=== PATIENT | male | born 1980 | race Caucasian/White ===

== ENCOUNTER 2016-07-16 09:52 | Emergency (ER) | payer OTHER ==
[2016-07-16] MEDS ORDERED: SODIUM CHLORIDE 0.9% 1,000 ML IV STA ×2 (10:54)
--- NOTE | 2016-07-16 10:58 | ED ---
General Adult HPI <Gabriel Pendleton - Last Filed: 07/16/16 14:07> - General Source: patient, RN notes reviewed Mode of arrival: ambulatory Limitations: no limitations <Martinez Renae - Last Filed: 07/16/16 14:10> - General Chief complaint: Headache Stated complaint: jaw pain Time Seen by Provider: 07/16/16 10:40 - History of Present Illness Initial comments: Patient a 36-year-old female who presents emergency room today with chief complaint of headache. Patient does admit to a history of jaw surgery that occurred 15 years ago. He does admit that he was told that the root began having pain approximately 10 years after the surgery. States he's had pain in the jaw. He does admit that 2 weeks ago increased. Patient does admit that he began having increased headache approximately 1 week ago. Patient states that he does have photosensitivity. Admits to headache located all over. Admits to it being sharp and throbbing and constant. She has tried [id number] medications with no relief. He does admit to some neck pain or stiffness is worse with certain movements. Patient denies any other complaints or symptoms. Patient denies any recent fever, chills, shortness of breath, chest pain, back pain, abdominal pain, nausea or vomiting, numbness or tingling, dysuria or hematuria, constipation or diarrhea, visual changes, or any other complaints. ( Martinez Renae) - Related Data Home Medications Medication Instructions Recorded Confirmed ALPRAZolam [Xanax] 1 mg PO DAILY PRN 12/27/15 07/16/16 Acetaminophen Tab [Tylenol Tab] 650 mg PO Q6H PRN 07/16/16 07/16/16 Allergies Allergy/AdvReac Type Severity Reaction Status Date / Time ziprasidone [From Geodon] AdvReac Unknown Verified 07/16/16 10:48 Review of Systems ROS Other: All systems not noted in ROS Statement are negative. <Gabriel Pendleton - Last Filed: 07/16/16 14:07> ROS Other: All systems not noted in ROS Statement are negative. <Martinez Renae - Last Filed: 07/16/16 14:10> ROS Statement: Those systems with pertinent positive or pertinent negative responses have been documented in the HPI. Past Medical History Past Medical History: GERD/Reflux, Hypertension Additional Past Medical History / Comment(s): History of high cholesterol, migraines, chronic pain issues in bilateral legs, history of chronic bronchitis. History of Any Multi-Drug Resistant Organisms: None Reported Past Surgical History: Cholecystectomy Additional Past Surgical History / Comment(s): JAW SURGERY S/P FRACTURE-has metal plate and screws. Past Anesthesia/Blood Transfusion Reactions: No Reported Reaction Past Psychological History: Anxiety, Bipolar, Depression, Panic Disorder, PTSD Additional Psychological History / Comment(s): Pt resides with his mother. He is independent. He drives. Smoking Status: Current every day smoker Past Alcohol Use History: None Reported Additional Past Alcohol Use History / Comment(s): Pt states he started smoking at age 14 (1994) and smokes 6 packs a day and rolls his own cigarettes. He states he smokes marijuana "1 joint a week." Pt. has a medical marijuana card. He denies any other street drug use. He denies any alcohol use and has had none for 6 years due to alcohol abuse. Past Drug Use History: Marijuana Additional Drug Use History / Comment(s): smokes marajuana once a week. - Past Family History Father Family Medical History: Liver Disease Additional Family Medical History / Comment(s): Father is alive in his late 60s and has hepatitis C, otherwise healthy. Mother Family Medical History: Diabetes Mellitus Additional Family Medical History / Comment(s): Mother is alive in her late 60s and is a diet controlled diabetic Brother(s) Family Medical History: No Reported History Additional Family Medical History / Comment(s): Patient has 1 brother with no major medical problems. Sister(s) Family Medical History: No Reported History Additional Family Medical History / Comment(s): Patient has 2 sisters with no major medical problems. Patient does not know if he has any children. <Martinez Renae - Last Filed: 07/16/16 14:10> General Exam <Gabriel Pendleton - Last Filed: 07/16/16 14:07> Limitations: no limitations <Martinez Renae - Last Filed: 07/16/16 14:10> - General Exam Comments Initial Comments: General: The patient is awake and alert, in no distress, and does not appear acutely ill. Eye: Pupils are equal, round and reactive to light, extra-ocular movements are intact. No nystagmus. There is normal conjunctiva bilaterally. No signs of icterus. Ears, nose, mouth and throat: There are moist mucous membranes and no oral lesions. Neck: The neck is supple, there is no tenderness or JVD. Cardiovascular: There is a regular rate and rhythm. No murmur, rub or gallop is appreciated. Respiratory: Lungs are clear to auscultation, respirations are non-labored, breath sounds are equal. No wheezes, stridor, rales, or rhonchi. Gastrointestinal: Soft, non-distended, non-tender abdomen without masses or organomegaly noted. There is no rebound or guarding present. No CVA tenderness. Bowel sounds are unremarkable. Musculoskeletal: Normal ROM, no tenderness. Strength 5/5. Sensation intact. Pulses equal bilaterally 2+. Neurological: A&O x 3. CN II-XII intact, There are no obvious motor or sensory deficits. Coordination appears grossly intact. Speech is normal. Skin: Skin is warm and dry and no rashes or lesions are noted. Psychiatric: Cooperative, appropriate mood & affect, normal judgment. (Martinez Renae) Medical Decision Making - Lab Data Result diagrams: 07/16/16 11:18 07/16/16 11:18 <Gabriel Pendleton - Last Filed: 07/16/16 14:07> - Lab Data Result diagrams: 07/16/16 11:18 07/16/16 11:18 <Martinez Renae - Last Filed: 07/16/16 14:10> - Medical Decision Making Patient reevaluated by myself, Dr. Pendleton. Patient states she's been having severe headaches for the past 5 years. Patient has had previous CTs and evaluation for this. Patient states she is similar to previous headaches. Pupils equal round reactive to light. Extra ocular muscles intact. No meningismus. Strength equal throughout. Normal gait. Patient requesting discharge home and narcotic pain medication. Patient is advised to follow-up with neurology and ENT. (Gabriel Pendleton) - Lab Data Lab Results 07/16/16 07/16/16 07/16/16 Range/Units 11:18 11:18 11:18 WBC 13.5 H (3.8-10.6) k/uL RBC 4.93 (4.30-5.90) m/uL Hgb 15.4 (13.0-17.5) gm/dL Hct 46.0 (39.0-53.0) % MCV 93.5 (80.0-100.0) fL MCH 31.2 (25.0-35.0) pg MCHC 33.4 (31.0-37.0) g/dL RDW 13.4 (11.5-15.5) % Plt Count 214 (150-450) k/uL Neutrophils % 62 % Lymphocytes % 25 % Monocytes % 6 % Eosinophils % 4 % Basophils % 1 % Neutrophils # 8.4 H (1.3-7.7) k/uL Lymphocytes # 3.4 (1.0-4.8) k/uL Monocytes # 0.9 (0-1.0) k/uL Eosinophils # 0.5 (0-0.7) k/uL Basophils # 0.1 (0-0.2) k/uL PT 9.5 (9.0-12.0) sec INR 0.9 (<1.1) APTT 25.7 (22.0-30.0) sec Sodium 143 (137-145) mmol/L Potassium 3.7 (3.5-5.1) mmol/L Chloride 107 (98-107) mmol/L Carbon Dioxide 28 (22-30) mmol/L Anion Gap 8 mmol/L BUN 13 (9-20) mg/dL Creatinine 0.90 (0.66-1.25) mg/dL Est GFR (MDRD) Af Amer >60 (>60 ml/min/1.73 sqM) Est GFR (MDRD) Non-Af >60 (>60 ml/min/1.73 sqM) Glucose 90 (74-99) mg/dL Calcium 9.2 (8.4-10.2) mg/dL Total Bilirubin 0.3 (0.2-1.3) mg/dL AST 62 H (17-59) U/L ALT 113 H (21-72) U/L Alkaline Phosphatase 79 (38-126) U/L Total Protein 7.2 (6.3-8.2) g/dL Albumin 4.1 (3.5-5.0) g/dL Urine Color Urine Appearance (Clear) Urine pH (5.0-8.0) Ur Specific [place] (1.001-1.035) Urine Protein (Negative) Urine Glucose (UA) (Negative) Urine Ketones (Negative) Urine Blood (Negative) Urine Nitrite (Negative) Urine Bilirubin (Negative) Urine Urobilinogen (<2.0) mg/dL Ur Leukocyte Esterase (Negative) Urine Opiates Screen (NotDetected) Ur Oxycodone Screen (NotDetected) Urine Methadone Screen (NotDetected) Ur Propoxyphene Screen (NotDetected) Ur Barbiturates Screen (NotDetected) U Tricyclic Antidepress (NotDetected) Ur Phencyclidine Scrn (NotDetected) Ur Amphetamines Screen (NotDetected) U Methamphetamines Scrn (NotDetected) U Benzodiazepines Scrn (NotDetected) Urine Cocaine Screen (NotDetected) U Marijuana (THC) Screen (NotDetected) 07/16/16 07/16/16 Range/Units 11:35 11:35 WBC (3.8-10.6) k/uL RBC (4.30-5.90) m/uL Hgb (13.0-17.5) gm/dL Hct (39.0-53.0) % MCV (80.0-100.0) fL MCH (25.0-35.0) pg MCHC (31.0-37.0) g/dL RDW (11.5-15.5) % Plt Count (150-450) k/uL Neutrophils % % Lymphocytes % % Monocytes % % Eosinophils % % Basophils % % Neutrophils # (1.3-7.7) k/uL Lymphocytes # (1.0-4.8) k/uL Monocytes # (0-1.0) k/uL Eosinophils # (0-0.7) k/uL Basophils # (0-0.2) k/uL PT (9.0-12.0) sec INR (<1.1) APTT (22.0-30.0) sec Sodium (137-145) mmol/L Potassium (3.5-5.1) mmol/L Chloride (98-107) mmol/L Carbon Dioxide (22-30) mmol/L Anion Gap mmol/L BUN (9-20) mg/dL Creatinine (0.66-1.25) mg/dL Est GFR (MDRD) Af Amer (>60 ml/min/1.73 sqM) Est GFR (MDRD) Non-Af (>60 ml/min/1.73 sqM) Glucose (74-99) mg/dL Calcium (8.4-10.2) mg/dL Total Bilirubin (0.2-1.3) mg/dL AST (17-59) U/L ALT (21-72) U/L Alkaline Phosphatase (38-126) U/L Total Protein (6.3-8.2) g/dL Albumin (3.5-5.0) g/dL Urine Color Colorless Urine Appearance Clear (Clear) Urine pH 5.0 (5.0-8.0) Ur Specific [place] 1.003 (1.001-1.035) Urine Protein Negative (Negative) Urine Glucose (UA) Negative (Negative) Urine Ketones Negative (Negative) Urine Blood Negative (Negative) Urine Nitrite Negative (Negative) Urine Bilirubin Negative (Negative) Urine Urobilinogen <2.0 (<2.0) mg/dL Ur Leukocyte Esterase Negative (Negative) Urine Opiates Screen Not Detected (NotDetected) Ur Oxycodone Screen Not Detected (NotDetected) Urine Methadone Screen Not Detected (NotDetected) Ur Propoxyphene Screen Not Detected (NotDetected) Ur Barbiturates Screen Not Detected (NotDetected) U Tricyclic Antidepress Not Detected (NotDetected) Ur Phencyclidine Scrn Not Detected (NotDetected) Ur Amphetamines Screen Not Detected (NotDetected) U Methamphetamines Scrn Not Detected (NotDetected) U Benzodiazepines Scrn Detected H (NotDetected) Urine Cocaine Screen Not Detected (NotDetected) U Marijuana (THC) Screen Detected H (NotDetected) Disposition <Gabriel Pendleton - Last Filed: 07/16/16 14:07> Time of Disposition: 14:09 <Martinez Renae - Last Filed: 07/16/16 14:10> Clinical Impression: Headache Disposition: HOME SELF-CARE Condition: Good Additional Instructions: Please follow-up with neurology and ENT as discussed here in the emergency room. Return to emergency room if any symptoms increase or worsen or for any other concerns. Referrals: None,Stated [Primary Care Provider] - 1-2 days Segundo Huang MD [STAFF PHYSICIAN] - 1-2 days Jerome Douglas MD [STAFF PHYSICIAN] - 1-2 days
[2016-07-16 11:31] LABS: Basophils # (A) 0.1 k/uL (0-0.2); Basophils % (A) 1 %; CH 31.8; CHCM 34.2; Eosinophils # (A) 0.5 k/uL (0-0.7); Eosinophils % (A) 4 %; HGB 15.4 gm/dL (13.0-17.5); Luc # (Auto) 0.21; Luc % (Auto) 2; Lymphocytes # (A) 3.4 k/uL (1.0-4.8); Lymphocytes % (A) 25 %; MCH 31.2 pg (25.0-35.0); MCHC 33.4 g/dL (31.0-37.0); MCV 93.5 fL (80.0-100.0); Mean Platelet Volume 7.2; Monocytes # (A) 0.9 k/uL (0-1.0); Monocytes % (A) 6 %; Neutrophils # (A) 8.4 k/uL (1.3-7.7); Neutrophils % (A) 62 %; RBC 4.93 m/uL (4.30-5.90); RDW 13.4 % (11.5-15.5); WBC 13.5 k/uL (3.8-10.6); WBC (Perox) 13.38
[2016-07-16 11:39] LABS: ALT 113 U/L (21-72); AST 62 U/L (17-59); Alkaline Phosphatase 79 U/L (38-126); Anion Gap 8 mmol/L; Blood Urea Nitrogen 13 mg/dL (9-20); Calcium 9.2 mg/dL (8.4-10.2); Carbon Dioxide 28 mmol/L (22-30); Chloride 107 mmol/L (98-107); Glucose 90 mg/dL (74-99); INR 0.9 (<1.1); Non-African American GFR(MDRD) >60 (>60 ml/min/1.73 sqM); Partial Thromboplastin Time 25.7 sec (22.0-30.0); Potassium 3.7 mmol/L (3.5-5.1); Prothrombin Time 9.5 sec (9.0-12.0); Sodium 143 mmol/L (137-145); Total Bilirubin 0.3 mg/dL (0.2-1.3); Total Protein 7.2 g/dL (6.3-8.2)
[2016-07-16 11:46] LABS: Appearance,Urine Clear (Clear); Bilirubin,Urine Negative (Negative); Glucose,Urine (UA) Negative (Negative); Ketones,Urine Negative (Negative); Leukocyte Esterase,Urine Negative (Negative); Nitrite,Urine Negative (Negative); Protein,Urine Negative (Negative); Specific Gravity,Urine 1.003 (1.001-1.035); UA Billing (MACRO vs. MICRO) CHEM; Urobilinogen,Urine <2.0 mg/dL (<2.0)
--- NOTE | 2016-07-16 11:51 | CT ---
EXAMINATION TYPE: CT brain cspine wo con DATE OF EXAM: 07/16/2016 11:44 AM COMPARISON: 12/28/2015 HISTORY: Jaw pain, headaches CT DLP: 2267 mGycm, Automated exposure control for dose reduction was used. CONTRAST: None CT of the brain is performed utilizing 3 mm thick sections through the posterior fossa and 3 mm thick sections through the remaining calvarium. Study is performed within 24 hours of arrival to the hospital. No abnormal hyperdensity is present to suggest an acute intracranial hemorrhage. No mass lesion is evident. No acute infarcts are evident. Ventricles and sulci are appropriate for the patient age. Paranasal sinuses and mastoid air cells within the ykwqe-lv-ahth are clear. Temporomandibular joint within the quxaw-uy-kpta is normal IMPRESSIONS: 1. Normal CT brain. CT cervical spine. COMPARISON: None CT of the cervical spine is performed in the axial plane at 2 mm thick sections. Reconstructed image s in the coronal, and sagittal plane are reviewed on the computer. No acute fractures are evident. Spina bifida occulta of C1 is present. Portion of the mandible within the mzoyq-ec-uerv is normal. Vertebral body alignment is normal. Disc heights are preserved. Vertebral body heights are preserved. No spinal canal stenosis is evident. No neural foraminal stenosis is evident. IMPRESSIONS: 1. Normal CT cervical spine.
[2016-07-16] MEDS ORDERED: KETOROLAC 30 MG/ML 1 ML VIAL IVP STA (12:15)
[2016-07-16] MEDS ORDERED: METOCLOPRAMIDE 5 MG/ML 2 ML VIAL IVP STA (12:15)
[2016-07-16] MEDS ORDERED: diphenhydrAMINE 50 MG/ML 1 ML VIAL IVP STA (12:15)
[2016-07-16] MEDS ORDERED: MORPHINE SULFATE 4 MG/ML SYRINGE IV STA (14:09)
[2016-07-16 14:18] VITALS: BP 113/63; PULSE 84; RESP 16; TEMP 97.6
== END 2016-07-16 14:38 | disposition home or self-care (01) ==
LOC: EC 09:52
DX: R51 Headache (principal); R68.84 Jaw pain; M54.2 Cervicalgia; F17.210 Nicotine dependence, cigarettes, uncomplicated; Z88.8 Allergy status to other drugs, medicaments and biological substances
CPT/HCPCS: 99284; 96374; 96375 ×2; 96361; 36415; 80053; 85025; 85610; 85730; 81003; 87040; 80306; 72125; 70450; J1200; J2765; J1885

== ENCOUNTER 2017-03-25 06:31 | Emergency (ER) | payer OTHER ==
[2017-03-25 06:44] VITALS: RESP 18
[2017-03-25] MEDS ORDERED: KETOROLAC 60 MG/2 ML VIAL IM STA (07:22)
--- NOTE | 2017-03-25 07:24 | ED ---
General Adult HPI - General Chief complaint: Fall Stated complaint: Fall down stairs Time Seen by Provider: 03/25/17 07:00 Source: patient, RN notes reviewed Mode of arrival: ambulatory Limitations: no limitations - History of Present Illness Initial comments: This is a 36-year-old male who presents emergency Department stating he fell down a couple steps last evening complains of left foot pain and right upper arm pain. Patient denies being intoxicated at the time. Patient denies hitting his head or having any neck pain. Patient denies any other injuries. Patient denies chest pain difficulty breathing or shortness of breath. Patient states he just lost his balance when he fell. Patient denies any abdominal pain patient denies any back pain - Related Data Home Medications Medication Instructions Recorded Confirmed ALPRAZolam [Xanax] 0.25 mg PO QID PRN 01/22/17 03/25/17 Mirtazapine [Remeron] 30 mg PO HS 01/22/17 03/25/17 QUEtiapine FUMARATE [SEROquel] 300 mg PO HS 01/22/17 03/25/17 busPIRone HCL 15 mg PO TID 01/22/17 03/25/17 Allergies Allergy/AdvReac Type Severity Reaction Status Date / Time ziprasidone [From Geodon] AdvReac Unknown Verified 07/16/16 10:48 Review of Systems ROS Statement: Those systems with pertinent positive or pertinent negative responses have been documented in the HPI. ROS Other: All systems not noted in ROS Statement are negative. Past Medical History Past Medical History: GERD/Reflux, Hypertension Additional Past Medical History / Comment(s): History of high cholesterol, migraines, chronic pain issues in bilateral legs, history of chronic bronchitis. History of Any Multi-Drug Resistant Organisms: None Reported Past Surgical History: Cholecystectomy Additional Past Surgical History / Comment(s): JAW SURGERY S/P FRACTURE-has metal plate and screws. Past Anesthesia/Blood Transfusion Reactions: No Reported Reaction Past Psychological History: Anxiety, Bipolar, Depression, Panic Disorder, PTSD Smoking Status: Current every day smoker Past Alcohol Use History: Abuse Past Drug Use History: Marijuana - Past Family History Father Family Medical History: Liver Disease Additional Family Medical History / Comment(s): Father is alive in his late 60s and has hepatitis C, otherwise healthy. Mother Family Medical History: Diabetes Mellitus Additional Family Medical History / Comment(s): Mother is alive in her late 60s and is a diet controlled diabetic Brother(s) Family Medical History: No Reported History Additional Family Medical History / Comment(s): Patient has 1 brother with no major medical problems. Sister(s) Family Medical History: No Reported History Additional Family Medical History / Comment(s): Patient has 2 sisters with no major medical problems. Patient does not know if he has any children. General Exam - General Exam Comments Initial Comments: GENERAL Patient is well-developed and well-nourished. Patient is in mild distress. EYES Patient's pupils are equal and round. Extraocular motion is intact SKIN Unremarkable NEURO The patient is alert and oriented 3 PYSCH Patient has normal interpersonal interactions. MUSCULOSKELETAL Patient's left foot is not swollen and mildly tender at the second metatarsal. Patient's humerus has full range of motion at the shoulder and elbow but he has some tenderness in the posterior aspect of the arm. Limitations: no limitations Course Vital Signs 03/25/17 03/25/17 06:40 08:42 Temperature 100 F H 98.7 F Pulse Rate 106 H 90 Respiratory 18 18 Rate Blood Pressure 137/78 113/68 O2 Sat by Pulse 94 L 94 L Oximetry Medical Decision Making - Medical Decision Making humerus shows no acute fracture on the x-ray. Foot x-ray shows no acute fracture. Disposition Clinical Impression: Contusion, foot, Contusion of arm Disposition: HOME SELF-CARE Condition: Good Instructions: Contusion in Adults (ED) Referrals: None,Stated [Primary Care Provider] - 1-2 days Time of Disposition: 08:44
--- NOTE | 2017-03-25 07:54 | XR ---
EXAMINATION TYPE: XR foot limited LT DATE OF EXAM: 03/25/2017 CLINICAL HISTORY: pain TECHNIQUE: Frontal, lateral images of the left foot are obtained. COMPARISON: 12/28/15 FINDINGS: There is no acute fracture/dislocation evident. The joint spaces appear within normal herrera its. The overlying soft tissue appears unremarkable. IMPRESSION: There is no acute fracture or dislocation. ICD 10 NO FRACTURE, INITIAL EVALUATION
--- NOTE | 2017-03-25 07:55 | XR ---
EXAMINATION TYPE: XR humerus RT DATE OF EXAM: 03/25/2017 CLINICAL HISTORY: pain COMPARISON: NONE TECHNIQUE: Frontal and lateral images of the right humerus are obtained. FINDINGS: There is no acute fracture/dislocation evident. The joint spaces appear within normal limi ts. The overlying soft tissue appears unremarkable. IMPRESSION: There is no acute fracture or dislocation.ICD 10 NO FRACTURE, INITIAL EVALUATION
[2017-03-25 08:43] VITALS: BP 113/68; PULSE 90; TEMP 98.7
== END 2017-03-25 08:49 | disposition home or self-care (01) ==
LOC: EC 06:31
DX: S90.32XA Contusion of left foot, initial encounter (principal); S40.021A Contusion of right upper arm, initial encounter; F31.9 Bipolar disorder, unspecified; F41.9 Anxiety disorder, unspecified; F17.200 Nicotine dependence, unspecified, uncomplicated; Z79.899 Other long term (current) drug therapy; Z88.8 Allergy status to other drugs, medicaments and biological substances; W10.9XXA Fall (on) (from) unspecified stairs and steps, initial encounter; Y93.89 Activity, other specified
CPT/HCPCS: 73060; 73620; 99283; 96372; J1885

== ENCOUNTER 2017-10-27 23:32 | Emergency (ER) | payer OTHER ==
[2017-10-28] MEDS ORDERED: NICOTINE 21MG/24HR PATCH TRANSDERM ONE (02:00)
[2017-10-28] MEDS ORDERED: SODIUM CHLORIDE 0.9% 1,000 ML BAG ONE (02:00)
[2017-10-28] MEDS ORDERED: MORPHINE SULFATE 2 MG/ML SYRINGE ONE ×2 (02:00)
[2017-10-28 06:58] LABS: ALT 195 U/L (21-72); AST 153 U/L (17-59); Albumin 4.6 g/dL (3.5-5.0); Alkaline Phosphatase 73 U/L (38-126); Anion Gap 11 mmol/L; Appearance,Urine Clear (Clear); Bilirubin,Urine Negative (Negative); Blood Urea Nitrogen 5 mg/dL (9-20); Blood,Urine Negative (Negative); Carbon Dioxide 23 mmol/L (22-30); Chloride 111 mmol/L (98-107); Color,Urine Yellow; Glucose 105 mg/dL (74-99); Glucose,Urine (UA) Negative (Negative); Ketones,Urine Negative (Negative); Leukocyte Esterase,Urine Negative (Negative); Mucus,Urine Rare /hpf; Nitrite,Urine Negative (Negative); PH, Urine 5.5 (5.0-8.0); Potassium 3.9 mmol/L (3.5-5.1); Protein,Urine Trace (Negative); RBC,Urine <1 /hpf (0-5); Sodium 145 mmol/L (137-145); Specific Gravity,Urine 1.008 (1.001-1.035); Total Bilirubin 0.4 mg/dL (0.2-1.3); Total Protein 7.6 g/dL (6.3-8.2); Urobilinogen,Urine <2.0 mg/dL (<2.0); WBC,Urine 1 /hpf (0-5)
[2017-10-28 06:59] LABS: Alcohol 111 mg/dL
[2017-10-28 07:01] LABS: Amphetamine Screen,Urine Not Detected (NotDetected); Barbiturate Screen,Urine Not Detected (NotDetected); Benzodiazepines Screen,Urine Detected (NotDetected); Cocaine Screen,Urine Not Detected (NotDetected); Methadone Screen, Urine Detected (NotDetected); Opiate Screen,Urine Not Detected (NotDetected); Oxycodone Screen, Urine Not Detected (NotDetected); Phencyclidine Screen,Urine Not Detected (NotDetected); Tricyclic Antidepressant,Urine Not Detected (NotDetected); Urn Cannabinoid Scrn Detected (NotDetected)
[2017-10-28 07:02] LABS: Basophils # (A) 0.1 k/uL (0-0.2); Basophils % (A) 1 %; Eosinophils # (A) 0.1 k/uL (0-0.7); Eosinophils % (A) 1 %; HGB 15.9 gm/dL (13.0-17.5); Lymphocytes # (A) 3.6 k/uL (1.0-4.8); Lymphocytes % (A) 33 %; MCH 31.3 pg (25.0-35.0); MCHC 33.1 g/dL (31.0-37.0); MCV 94.7 fL (80.0-100.0); Mean Platelet Volume 7.1; Monocytes # (A) 0.8 k/uL (0-1.0); Monocytes % (A) 7 %; Neutrophils # (A) 5.9 k/uL (1.3-7.7); Neutrophils % (A) 56 %; Platelet Count 214 k/uL (150-450); RBC 5.07 m/uL (4.30-5.90); RDW 14.2 % (11.5-15.5); WBC 10.7 k/uL (3.8-10.6)
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
== END 2017-10-28 06:44 ==
LOC: EC 23:32
DX: M54.2 Cervicalgia (principal); M54.5 Low back pain; R51 Headache; M79.672 Pain in left foot; M79.671 Pain in right foot; H54.62 Unqualified visual loss, left eye, normal vision right eye; F41.9 Anxiety disorder, unspecified; F17.200 Nicotine dependence, unspecified, uncomplicated; Z79.899 Other long term (current) drug therapy; Y04.0XXA Assault by unarmed brawl or fight, initial encounter
CPT/HCPCS: 82075; 36415; 80053; 85025; 81003; 80306; 80320; 71111; 73610; 73630; 72110; 72125; 70486; 70450; 99285; 96374; 96375; 96361; L0120; S4990; J2270

== ENCOUNTER 2017-11-16 11:58 | Emergency (ER) | payer OTHER ==
[2017-11-16] MEDS ORDERED: IBUPROFEN 800 MG TAB PO STA (12:25)
--- NOTE | 2017-11-16 12:43 | XR ---
EXAMINATION TYPE: XR foot complete RT DATE OF EXAM: 11/16/2017 CLINICAL HISTORY: pain TECHNIQUE: Frontal, lateral and oblique images of the right foot are obtained. COMPARISON: None. FINDINGS: There is no acute fracture/dislocation evident. The joint spaces appear within normal herrera its. The overlying soft tissue appears unremarkable. IMPRESSION: There is no acute fracture or dislocation. ICD 10 NO FRACTURE, INITIAL EVALUATION
[2017-11-16] MEDS ORDERED: AMOXIC-POT CLAV 875-125MG 1 EACH TAB PO STA (13:15)
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
[2017-11-16 13:38] VITALS: BP 145/73; PULSE 69; RESP 18; TEMP 98.6
== END 2017-11-16 13:38 | disposition home or self-care (01) ==
LOC: EC 11:58
DX: S90.31XA Contusion of right foot, initial encounter (principal); L03.115 Cellulitis of right lower limb; I87.2 Venous insufficiency (chronic) (peripheral); F31.9 Bipolar disorder, unspecified; F41.0 Panic disorder [episodic paroxysmal anxiety]; F17.200 Nicotine dependence, unspecified, uncomplicated; Z79.899 Other long term (current) drug therapy; Z88.8 Allergy status to other drugs, medicaments and biological substances; X58.XXXA Exposure to other specified factors, initial encounter
CPT/HCPCS: 99283

== ENCOUNTER 2017-12-08 10:47 | Emergency (ER) | payer OTHER ==
[2017-12-08 10:58] VITALS: BP 103/70; PULSE 99; RESP 18; TEMP 98.1
[2017-12-08] MEDS ORDERED: HYDROcodone/APAP 5-325MG 1 EACH TAB PO STA (11:16)
--- NOTE | 2017-12-08 11:21 | ED ---
General Adult HPI - General Chief complaint: Extremity Injury, Lower Stated complaint: Foot pain Source: patient Mode of arrival: ambulatory Limitations: no limitations - History of Present Illness Initial comments: Dictation was produced using [email or web address] dictation software. please excuse any grammatical, word or spelling errors. Chief Complaint: 37-year-old male presents with right foot pain. History of Present Illness: Patient states he was seen in the emergency department several days ago for the same complaint. He states that his legs were extremely swollen. States that he was treated for cellulitis. He completed a course of antibiotics. He is here today because he has some persistent right foot pain. Patient states that his pain has been getting worse. He reports that he is here because he is worried about infection. She is requesting 3 day course of Hastings as. The ROS documented in this emergency department record has been reviewed and confirmed by me. Those systems with pertinent positive or negative responses have been documented in the HPI. All other systems are other negative and/or noncontributory. - Related Data Home Medications Medication Instructions Recorded Confirmed Mirtazapine [Remeron] 30 mg PO HS 01/22/17 11/16/17 QUEtiapine FUMARATE [SEROquel] 300 mg PO HS 01/22/17 11/16/17 busPIRone HCL 15 mg PO TID 01/22/17 11/16/17 ALPRAZolam [Xanax] 2 mg PO TID 11/16/17 11/16/17 QUEtiapine [SEROquel] 100 mg PO DAILY@1800 11/16/17 11/16/17 Previous Rx's Medication Instructions Recorded Amoxicillin/Potassium Clav 1 tab PO Q12HR #20 tab 11/16/17 [Augmentin 875-125 Tablet] Hydrocodone/Acetaminophen [[place] 1 each PO Q6HR PRN #12 tab 11/16/17 5-325] Ibuprofen 800 mg PO Q6HR PRN #20 tablet 11/16/17 Allergies Allergy/AdvReac Type Severity Reaction Status Date / Time ziprasidone [From Geodon] AdvReac Unknown Verified 12/08/17 10:58 Review of Systems ROS Statement: Those systems with pertinent positive or pertinent negative responses have been documented in the HPI. ROS Other: All systems not noted in ROS Statement are negative. Past Medical History Past Medical History: GERD/Reflux, Hypertension Additional Past Medical History / Comment(s): History of high cholesterol, migraines, chronic pain issues in bilateral legs, history of chronic bronchitis. History of Any Multi-Drug Resistant Organisms: None Reported Past Surgical History: Cholecystectomy Additional Past Surgical History / Comment(s): JAW SURGERY S/P FRACTURE-has metal plate and screws. Past Anesthesia/Blood Transfusion Reactions: No Reported Reaction Past Psychological History: Anxiety, Bipolar, Depression, Panic Disorder, PTSD, Schizoaffective Disorder Smoking Status: Current every day smoker Past Alcohol Use History: None Reported Past Drug Use History: Marijuana - Past Family History Father Family Medical History: Liver Disease Additional Family Medical History / Comment(s): Father is alive in his late 60s and has hepatitis C, otherwise healthy. Mother Family Medical History: Diabetes Mellitus Additional Family Medical History / Comment(s): Mother is alive in her late 60s and is a diet controlled diabetic Brother(s) Family Medical History: No Reported History Additional Family Medical History / Comment(s): Patient has 1 brother with no major medical problems. Sister(s) Family Medical History: No Reported History Additional Family Medical History / Comment(s): Patient has 2 sisters with no major medical problems. Patient does not know if he has any children. General Exam - General Exam Comments Initial Comments: PHYSICAL EXAM: General Impression: Alert and oriented x3, not in acute distress HEENT: Normocephalic atraumatic, extra-ocular movements intact, pupils equal and reactive to light bilaterally, mucous membranes moist. Cardiovascular: Heart regular rate and rhythm, S1&S2 audible, no murmurs, rubs or gallops Chest: Lungs clear to auscultation bilaterally, no rhonchi, no wheeze, no rales Abdomen: Bowel sounds present, abdomen soft, non-tender, non-distended, no organomegaly Musculoskeletal: Pulses present and equal in all extremities, no peripheral edema Motor: Power 5/5 bilaterally, no focal deficits noted Neurological: CN II-XII grossly intact, no focal motor or sensory deficits noted Skin: Small tenderness to the dorsum of the right foot. No surrounding erythema. No drainage. Psych: Normal affect and mood Limitations: no limitations Course Vital Signs 12/08/17 10:56 Temperature 98.1 F Pulse Rate 99 Respiratory 18 Rate Blood Pressure 103/70 O2 Sat by Pulse 95 Oximetry Medical Decision Making - Medical Decision Making ED course: 37-year-old male presents with right foot. He denies any trauma. Patient states that his pain is worse. States that however he looks better. No physical findings to suggest cellulitis or other infectious process. As upon arrival are within acceptable limits. Patient requesting 3 days of opiates. There is some suspicion that patient is drug-seeking. Patient given 2 Hastings as for pain control. He is discharged. Patient told to take Tylenol Motrin for pain control. He is given follow-up with primary care physician for outpatient management of symptoms. Disposition Clinical Impression: Foot pain Disposition: HOME SELF-CARE Condition: Good Instructions: Arthralgia (ED) Is patient prescribed a controlled substance at d/c from ED?: No Referrals: None,Stated [Primary Care Provider] - 1-2 days Brayan Rodríguez MD [STAFF PHYSICIAN] - 1-2 days Time of Disposition: 11:19
== END 2017-12-08 11:45 | disposition home or self-care (01) ==
LOC: EC 10:47
DX: M79.671 Pain in right foot (principal); F41.9 Anxiety disorder, unspecified; F31.9 Bipolar disorder, unspecified; F43.10 Post-traumatic stress disorder, unspecified; F25.9 Schizoaffective disorder, unspecified; F17.200 Nicotine dependence, unspecified, uncomplicated; Z79.899 Other long term (current) drug therapy; Z88.8 Allergy status to other drugs, medicaments and biological substances
CPT/HCPCS: 99283

== ENCOUNTER 2018-01-12 01:40 | Emergency (ER) | payer OTHER ==
[2018-01-12 01:53] VITALS: RESP 17
[2018-01-12 02:38] LABS: Amphetamine Screen,Urine Not Detected (NotDetected); Cocaine Screen,Urine Not Detected (NotDetected); Opiate Screen,Urine Not Detected (NotDetected); Phencyclidine Screen,Urine Not Detected (NotDetected); Urn Cannabinoid Scrn Detected (NotDetected)
[2018-01-12 02:39] LABS: Barbiturate Screen,Urine Not Detected (NotDetected); Benzodiazepines Screen,Urine Detected (NotDetected); Methadone Screen, Urine Not Detected (NotDetected); Oxycodone Screen, Urine Not Detected (NotDetected); Tricyclic Antidepressant,Urine Not Detected (NotDetected)
--- NOTE | 2018-01-12 03:44 | ED ---
Psych HPI - General Chief Complaint: Psychiatric Symptoms Stated Complaint: mental health Time Seen by Provider: 01/12/18 02:05 Source: patient Mode of arrival: ambulatory - History of Present Illness Initial Comments: Hermes is a 37-year-old gentleman who presents the emergency department today for evaluation of psychiatric illness. Patient states that he has a complicated history of psychiatric illness. He reports that he has been hospitalized for psychiatric illness in the past, most recently was 2 years ago. Patient reports his mother brought him to the emergency department today because he needs evaluation. Patient reports that he is having over 1 million thoughts per second. When asked if he is having any suicidal thought the patient states that he doesn't know how to answer that complex question because with the multiple thoughts that he is having could some of them be suicidal, but is not codominant tautness head. When asked if he has any suicidal plan patient states that again he can't answer these questions but that if he was going to kill himself he would be very creative. When asked if he is having any homicidal thoughts or thoughts of harming others the patient denies this. When asked if he feels that he is hallucinating or delusional patient states that he's not certain if he is hallucinating. He states at times he thinks he is having vivid dreams and then believes he wakes up but isn't certain if he is awake her dreaming at times. When asked if he believes he is hallucinating the patient admits that he does have a lot of voices in his head but describes them as thoughts. He states he can't comment on whether or not he is hallucinating. - Related Data Home Medications Medication Instructions Recorded Confirmed Mirtazapine [Remeron] 30 mg PO HS 01/22/17 11/16/17 QUEtiapine FUMARATE [SEROquel] 300 mg PO HS 01/22/17 11/16/17 busPIRone HCL 15 mg PO TID 01/22/17 11/16/17 ALPRAZolam [Xanax] 2 mg PO TID 11/16/17 11/16/17 QUEtiapine [SEROquel] 100 mg PO DAILY@1800 11/16/17 11/16/17 Previous Rx's Medication Instructions Recorded Amoxicillin/Potassium Clav 1 tab PO Q12HR #20 tab 11/16/17 [Augmentin 875-125 Tablet] Hydrocodone/Acetaminophen [[place] 1 each PO Q6HR PRN #12 tab 11/16/17 5-325] Ibuprofen 800 mg PO Q6HR PRN #20 tablet 11/16/17 Allergies Allergy/AdvReac Type Severity Reaction Status Date / Time ziprasidone [From [place]] AdvReac Unknown Verified 01/12/18 01:53 Review of Systems ROS Statement: Those systems with pertinent positive or pertinent negative responses have been documented in the HPI. ROS Other: All systems not noted in ROS Statement are negative. Past Medical History Past Medical History: GERD/Reflux, Hyperlipidemia, Hypertension Additional Past Medical History / Comment(s): migraines, chronic pain issues in bilateral legs, history of chronic bronchitis., History of Any Multi-Drug Resistant Organisms: None Reported Past Surgical History: Cholecystectomy Additional Past Surgical History / Comment(s): JAW SURGERY S/P FRACTURE-has metal plate and screws. Past Anesthesia/Blood Transfusion Reactions: No Reported Reaction Past Psychological History: Anxiety, Bipolar, Depression, Panic Disorder, PTSD, Schizoaffective Disorder Smoking Status: Current every day smoker Past Alcohol Use History: None Reported Past Drug Use History: Marijuana - Past Family History Father Family Medical History: Liver Disease Additional Family Medical History / Comment(s): Father is alive in his late 60s and has hepatitis C, otherwise healthy. Mother Family Medical History: Diabetes Mellitus Additional Family Medical History / Comment(s): Mother is alive in her late 60s and is a diet controlled diabetic Brother(s) Family Medical History: No Reported History Additional Family Medical History / Comment(s): Patient has 1 brother with no major medical problems. Sister(s) Family Medical History: No Reported History Additional Family Medical History / Comment(s): Patient has 2 sisters with no major medical problems. Patient does not know if he has any children. General Exam - General Exam Comments Initial Comments: Physical Exam GENERAL: Patient is well-developed and well-nourished. Patient is nontoxic and well- hydrated and is in no distress. HENT: Normocephalic, Atraumatic. EYES: PERRL, EOMI PULMONARY: Unlabored respirations. No audible rales rhonchi or wheezing was noted. CARDIOVASCULAR: There is a regular rate and rhythm without any murmurs gallops or rubs. ABDOMEN: Obese, nontender SKIN: Skin is clear with no lesions or rashes and otherwise unremarkable. : Deferred NEUROLOGIC: Patient is alert and oriented x3. Moving all extremities spontaneously MUSCULOSKELETAL: Normal extremities with adequate strength and full range of motion. No lower extremity swelling or edema. No calf tenderness. PSYCHIATRIC: Odd affect, appears distracted by internal stimuli Passively suicidal Limitations: no limitations Limitations: no limitations Course Vital Signs 01/12/18 01:46 Temperature 98.2 F Pulse Rate 99 Respiratory 17 Rate Blood Pressure 143/96 O2 Sat by Pulse 96 Oximetry Medical Decision Making - Medical Decision Making The patient was seen and evaluated, patient's breath alcohol was mildly elevated but the patient is clinically sober. Patient is medically cleared for evaluation by psych. The patient was evaluated by EPS nurse. Patient has seen his primary care physician and therapist recently. Patient not actively suicidal homicidal delusional or hallucinating At this time EPS is determined the patient is stable for discharge home with the plan to follow up with his psychiatrist tomorrow morning. The patient was advised to contact in the morning for a emergency appointment. Patient expressed understanding of this plan. - Lab Data Lab Results 01/12/18 Range/Units 01:54 Urine Opiates Screen Not Detected (NotDetected) Ur Oxycodone Screen Not Detected (NotDetected) Urine Methadone Screen Not Detected (NotDetected) Ur Propoxyphene Screen Not Detected (NotDetected) Ur Barbiturates Screen Not Detected (NotDetected) U Tricyclic Antidepress Not Detected (NotDetected) Ur Phencyclidine Scrn Not Detected (NotDetected) Ur Amphetamines Screen Not Detected (NotDetected) U Methamphetamines Scrn Not Detected (NotDetected) U Benzodiazepines Scrn Detected H (NotDetected) Urine Cocaine Screen Not Detected (NotDetected) U Marijuana (THC) Screen Detected H (NotDetected) Disposition Clinical Impression: Depression Disposition: HOME SELF-CARE Instructions: Depression (ED), Peripheral Vascular Disease (ED) Is patient prescribed a controlled substance at d/c from ED?: No Referrals: None,Stated [Primary Care Provider] - 1-2 days [facility] [[facility] - 1-2 days Time of Disposition: 04:53
[2018-01-12 05:38] VITALS: BP 138/66; PULSE 67; TEMP 97.8
== END 2018-01-12 04:57 | disposition home or self-care (01) ==
LOC: EC 01:40
DX: F31.9 Bipolar disorder, unspecified (principal); F41.9 Anxiety disorder, unspecified; F43.10 Post-traumatic stress disorder, unspecified; F17.200 Nicotine dependence, unspecified, uncomplicated; Z90.49 Acquired absence of other specified parts of digestive tract; Z98.890 Other specified postprocedural states; Z88.8 Allergy status to other drugs, medicaments and biological substances
CPT/HCPCS: 80306; 99285

== ENCOUNTER 2018-07-15 09:55 | Emergency (ER) | payer OTHER ==
[2018-07-15 10:26] VITALS: BP 144/95; PULSE 82; RESP 16; TEMP 97.8
[2018-07-15] MEDS ORDERED: HYDROcodone/APAP 5-325MG 1 EACH TAB PO STA (11:08)
[2018-07-15] MEDS ORDERED: ACET/COD 300 MG/30 MG STARTER PACK 6 TAB BTL PO STA (11:09)
--- NOTE | 2018-07-15 11:10 | ED ---
Extremity Problem HPI - General Chief complaint: Extremity Problem,Nontraumatic Stated complaint: Pain in both feet Time Seen by Provider: 07/15/18 10:47 Source: patient, RN notes reviewed, old records reviewed Mode of arrival: ambulatory Limitations: physical limitation - History of Present Illness Initial comments: Patient is a 38-year-old male presents emergency department today with history of pain in bilateral feet as well as bruising over the dorsum of his seat. He reports chronic pain for the past few months. Patient states that he has foll owed up with [facility]. Patient states that they do biopsies and determines noninfectious source of the pain first feet. Patient has had no fevers or chills. Patient states that he is having severe pain in his feet yesterday. It caused him to have some anxiety subsequently had single episode after having a panic attack. Patient states that he was a syncopal episode is likely related to a panic attack, he states he was having some chest pain during that time. Patient is time seems more concern for pain management for bilateral foot pain. - Related Data Home Medications Medication Instructions Recorded Confirmed QUEtiapine FUMARATE [SEROquel] 300 mg PO HS 01/22/17 07/15/18 Acetaminophen Tab [Tylenol Tab] 1,000 mg PO Q6HR PRN 07/15/18 07/15/18 Ibuprofen [Motrin] 400 mg PO Q6HR PRN 07/15/18 07/15/18 Allergies Allergy/AdvReac Type Severity Reaction Status Date / Time ziprasidone [From Geodon] AdvReac Unknown Verified 07/15/18 10:32 Review of Systems ROS Statement: Those systems with pertinent positive or pertinent negative responses have been documented in the HPI. ROS Other: All systems not noted in ROS Statement are negative. Past Medical History Past Medical History: GERD/Reflux, Hyperlipidemia, Hypertension Additional Past Medical History / Comment(s): migraines, chronic pain issues in bilateral legs, history of chronic bronchitis., History of Any Multi-Drug Resistant Organisms: None Reported Past Surgical History: Cholecystectomy Additional Past Surgical History / Comment(s): JAW SURGERY S/P FRACTURE-has metal plate and screws. Past Anesthesia/Blood Transfusion Reactions: No Reported Reaction Past Psychological History: Anxiety, Bipolar, Depression, Panic Disorder, PTSD, Schizoaffective Disorder Smoking Status: Current every day smoker Past Alcohol Use History: None Reported Past Drug Use History: Marijuana - Past Family History Father Family Medical History: Liver Disease Additional Family Medical History / Comment(s): Father is alive in his late 60s and has hepatitis C, otherwise healthy. Mother Family Medical History: Diabetes Mellitus Additional Family Medical History / Comment(s): Mother is alive in her late 60s and is a diet controlled diabetic Brother(s) Family Medical History: No Reported History Additional Family Medical History / Comment(s): Patient has 1 brother with no major medical problems. Sister(s) Family Medical History: No Reported History Additional Family Medical History / Comment(s): Patient has 2 sisters with no major medical problems. Patient does not know if he has any children. General Exam - General Exam Comments Initial Comments: Patient is an 38-year-old male. Patient is alert and oriented Limitations: physical limitation General appearance: alert, in no apparent distress Head exam: Present: atraumatic, normocephalic, normal inspection Eye exam: Present: normal appearance, PERRL, EOMI. Absent: scleral icterus, conjunctival injection, periorbital swelling ENT exam: Present: normal exam, mucous membranes moist Neck exam: Present: normal inspection. Absent: tenderness, meningismus, lymphadenopathy Respiratory exam: Present: normal lung sounds bilaterally. Absent: respiratory distress, wheezes, rales, rhonchi, stridor Cardiovascular Exam: Present: regular rate, normal rhythm, normal heart sounds. Absent: systolic murmur, diastolic murmur, rubs, gallop, clicks GI/Abdominal exam: Present: soft, normal bowel sounds. Absent: distended, tenderness, guarding, rebound, rigid Extremities exam: Present: normal inspection, full ROM, normal capillary refill, other (Patient has brown skin changes over the dorsal MCP. Normal pulses distally. Full range of motion of the toes noted. Patient reports pain to any palpation of the foot. Patient seems over exaggerated.). Absent: tenderness, pedal edema, joint swelling, calf tenderness Back exam: Present: normal inspection Neurological exam: Present: alert, oriented X3, CN II-XII intact Psychiatric exam: Present: normal affect, normal mood Skin exam: Present: warm, dry, intact, normal color. Absent: rash Course Vital Signs 07/15/18 10:22 Temperature 97.8 F Pulse Rate 82 Respiratory 16 Rate Blood Pressure 144/95 O2 Sat by Pulse 96 Oximetry Medical Decision Making - Medical Decision Making 38-year-old male presents raise department today complains of bilateral foot pain. He also stated he had severe foot pain yesterday causing him to have a panic attack and then syncopal episode. I discussed the Patient and Do further workup for possible syncopal episode as well as relating to having started with chest pain. Patient states was from panic attack and does not want to do this. I discussed the Patient will be leaving his medical advice due to the complaint of syncopal episode. Patient is mainly concerned for his bilateral foot pain. Seems to be drug-seeking behavior. Given one Tylenol with Codeine in the emergency department and will be discharged AMA. I discussed and to follow-up with PCP. Discussed feeding any further syncopal episodes or concerns for chest pain he needs to return for reevaluation. Disposition Clinical Impression: Bilateral foot pain, Syncope Disposition: Left Against Medical Advice Condition: Good Instructions (If sedation given, give patient instructions): Syncope (ED) Additional Instructions: Follow-up with primary care doctor. Return to emergency department if any alarming signs or symptoms occur. Is patient prescribed a controlled substance at d/c from ED?: No Referrals: None,Stated [Primary Care Provider] - 1-2 days Time of Disposition: 11:09
== END 2018-07-15 11:25 | disposition left against medical advice (07) ==
LOC: EC 09:55
DX: M79.672 Pain in left foot (principal); M79.671 Pain in right foot; R55 Syncope and collapse; F41.0 Panic disorder [episodic paroxysmal anxiety]; F31.9 Bipolar disorder, unspecified; F25.9 Schizoaffective disorder, unspecified; F43.10 Post-traumatic stress disorder, unspecified; F17.200 Nicotine dependence, unspecified, uncomplicated; Z79.899 Other long term (current) drug therapy; Z88.8 Allergy status to other drugs, medicaments and biological substances; Z53.29 Procedure and treatment not carried out because of patient's decision for other reasons
CPT/HCPCS: 99283

== ENCOUNTER 2024-10-30 11:08 | Emergency (ER) | payer OTHER ==
[2024-10-30 11:21] VITALS: TEMP 97.9
[2024-10-30 12:16] LABS: Basophils # (A) 0.07 10*3/uL (0.00-0.10); Basophils % (A) 0.7 %; Eosinophils # (A) 0.13 10*3/uL (0.04-0.35); Eosinophils % (A) 1.4 %; HCT 45.1 % (39.6-50.0); HGB 15.9 g/dL (13.0-17.0); Lymphocytes # (A) 1.95 10*3/uL (0.90-5.00); Lymphocytes % (A) 20.4 %; MCH 32.7 pg (27.0-32.0); MCHC 35.3 g/dL (32.0-37.0); MCV 92.8 fL (80.0-97.0); Monocytes # (A) 0.72 10*3/uL (0.20-1.00); Monocytes % (A) 7.5 %; Neutrophils # (A) 6.65 10*3/uL (1.80-7.70); Neutrophils % (A) 69.6 %; Platelet Count 194 10*3/uL (140-440); RBC 4.86 10*6/uL (4.40-5.60); RDW 13.2 % (11.5-14.5); WBC 9.56 10*3/uL (4.50-10.00)
[2024-10-30 12:27] LABS: ALT 279 U/L (4-49); AST 154 U/L (17-59); African American GFR (CKD) >90 (>60 ml/min/1.73 sqM); Albumin 4.6 g/dL (3.5-5.0); Alkaline Phosphatase 63 U/L (38-126); Anion Gap 9 mmol/L; Blood Urea Nitrogen 16 mg/dL (9-20); Calcium 9.3 mg/dL (8.4-10.2); Carbon Dioxide 24 mmol/L (22-30); Chloride 107 mmol/L (98-107); Glucose 158 mg/dL (74-99); Magnesium 2.0 mg/dL (1.6-2.3); Non-African American GFR(CKD) >90 (>60 ml/min/1.73 sqM); Potassium 4.5 mmol/L (3.5-5.1); Sodium 140 mmol/L (137-145); Total Protein 7.9 g/dL (6.3-8.2)
[2024-10-30 12:34] LABS: INR 1.0 (<1.2); Partial Thromboplastin Time 23.9 sec (22.0-30.0); Prothrombin Time 10.8 sec (10.0-12.5)
--- NOTE | 2024-10-30 12:54 | ED ---
Chest Pain HPI - General Chief Complaint: Chest Pain Stated Complaint: Chest pain Time Seen by Provider: 10/30/24 11:22 Source: patient, RN notes reviewed Mode of arrival: ambulatory Limitations: no limitations - History of Present Illness Initial Comments: 44-year-old male presents emergency department complaint of chest pain. Patient states he had some intermittent symptoms more persistent symptoms centralized left-sided squeezing with statements that pain. He does not have any significant shortness of breath intermittent symptoms. Patient does have history of cardiac disease he states. Patient states he has history of hypertension hyperlipidemia and diabetes no fever chills no cough no leg symptoms no leg pain or leg swelling. - Related Data Home Medications Medication Instructions Recorded Confirmed ALPRAZolam [Xanax] 2 mg PO TID 10/30/24 10/30/24 Gabapentin [Neurontin] 400 mg PO TID 10/30/24 10/30/24 Mirtazapine [Remeron] 30 mg PO HS 10/30/24 10/30/24 OLANZapine 5 mg PO DAILY 10/30/24 10/30/24 OLANZapine 15 mg PO HS 10/30/24 10/30/24 Semaglutide [Ozempic] 0.25 mg SQ TU 10/30/24 10/30/24 busPIRone HCL 15 mg PO TID 10/30/24 10/30/24 Allergies Allergy/AdvReac Type Severity Reaction Status Date / Time ziprasidone [From Geodon] AdvReac Unknown Verified 10/30/24 13:11 Review of Systems ROS Statement: Those systems with pertinent positive or pertinent negative responses have been documented in the HPI. ROS Other: All systems not noted in ROS Statement are negative. EKG Findings - EKG Comments: EKG Findings:: EKG performed at 11: 26 sinus rhythm rate of 82 [place] 161 QRS 98 QT/QTc 351/389 - EKG Results: EKG: interpreted by ERMD Past Medical History Past Medical History: GERD/Reflux, Hyperlipidemia, Hypertension Additional Past Medical History / Comment(s): migraines, chronic pain issues in bilateral legs, history of chronic bronchitis., History of Any Multi-Drug Resistant Organisms: None Reported Past Surgical History: Cholecystectomy Additional Past Surgical History / Comment(s): JAW SURGERY S/P FRACTURE-has metal plate and screws. Past Anesthesia/Blood Transfusion Reactions: No Reported Reaction Past Psychological History: Anxiety, Bipolar, Depression, Panic Disorder, PTSD, Schizoaffective Disorder Smoking Status: Current every day smoker Past Alcohol Use History: None Reported Past Drug Use History: Marijuana - Past Family History Father Family Medical History: Liver Disease Additional Family Medical History / Comment(s): Father is alive in his late 60s and has hepatitis C, otherwise healthy. Mother Family Medical History: Diabetes Mellitus Additional Family Medical History / Comment(s): Mother is alive in her late 60s and is a diet controlled diabetic Brother(s) Family Medical History: No Reported History Additional Family Medical History / Comment(s): Patient has 1 brother with no major medical problems. Sister(s) Family Medical History: No Reported History Additional Family Medical History / Comment(s): Patient has 2 sisters with no major medical problems. Patient does not know if he has any children. General Exam Limitations: no limitations General appearance: alert, in no apparent distress Head exam: Present: atraumatic, normocephalic, normal inspection Eye exam: Present: normal appearance, PERRL, EOMI. Absent: scleral icterus, conjunctival injection, periorbital swelling ENT exam: Present: normal exam, normal oropharynx, mucous membranes moist, TM's normal bilaterally Neck exam: Present: normal inspection, full ROM. Absent: tenderness, meningismus, lymphadenopathy Respiratory exam: Present: normal lung sounds bilaterally. Absent: respiratory distress, wheezes, rales, rhonchi, stridor Cardiovascular Exam: Present: regular rate, normal rhythm, normal heart sounds. Absent: systolic murmur, diastolic murmur, rubs, gallop, clicks GI/Abdominal exam: Present: soft, normal bowel sounds. Absent: distended, tenderness, guarding, rebound, rigid Course Vital Signs 10/30/24 10/30/24 11:18 13:50 Temperature 97.9 F Pulse Rate 73 60 Respiratory 20 16 Rate Blood Pressure 141/66 136/90 O2 Sat by Pulse 99 98 Oximetry Chest Pain MDM - MDM Was pt. sent in by a medical professional or institution (, PA, CURATOR OF COLLECTIONS, urgent care, hospital, or [place] health care facility...) When possible be specific @ -No Did you speak to anyone other than the patient for history (EMS, parent, family, police, friend...)? What history was obtained from this source @ -No Did you review nursing and triage notes (agree or disagree)? Why? @ -I reviewed and agree with nursing and triage notes Were old charts reviewed (outside hosp., previous admission, EMS record, old EKG, old radiological studies, urgent care reports/EKG's, [place] health care facility records)? Report findings @ -No old charts were reviewed Differential Diagnosis (chest pain, altered mental status, abdominal pain women, abdominal pain men, vaginal bleeding, weakness, fever, dyspnea, syncope, headache, dizziness, GI bleed, back pain, seizure, CVA, palpatations, mental health, musculoskeletal)? @ -Differential Chest Pain: Stable Angina, Unstable Angina, STEMI, NSTEMI Aortic Dissection, Pneumothorax, Musculoskeletal, Esophageal Spasm GERD, Cholecystitis, Pancreatitis, Zoster, this is not meant to be an all-inclusive list. EKG interpreted by me (3pts min.). @ -As above X-rays interpreted by me (1pt min.). @ -Chest x-ray shows no acute cardiopulmonary process CT interpreted by me (1pt min.). @ -None done U/S interpreted by me (1pt. min.). @ -None done What testing was considered but not performed or refused? (CT, X-rays, U/S, labs)? Why? @ -None What meds were considered but not given or refused? Why? @ -None Did you discuss the management of the patient with other professionals (professionals i.e. , PA, CURATOR OF COLLECTIONS, lab, RT, psych nurse, social sciences professor, group managing director, teacher, building drafting officer, spring encaser)? Give summary @ -No Was smoking cessation discussed for >3mins.? @ -No Was critical care preformed (if so, how long)? @ -No Were there social determinants of health that impacted care today? How? (Homelessness, low income, unemployed, alcoholism, drug addiction, transportation, low edu. Level, literacy, decrease access to med. care, half-way, rehab)? @ -No Was there de-escalation of care discussed even if they declined (Discuss DNR or withdrawal of care, Hospice)? DNR status @ -No What co-morbidities impacted this encounter? (DM, HTN, Smoking, COPD, CAD, Cancer, CVA, ARF, Chemo, Hep., AIDS, mental health diagnosis, sleep apnea, morbid obesity)? @ -Hyperlipidemia hypertension diabetes Was patient admitted / discharged? Hospital course, mention meds given and route, prescriptions, significant lab abnormalities, going to OR and other pertinent info. @ -Discharged patient presented for chest pain intermittent over the last week. Initial work including troponin EKG chest x-ray imaging laboratory studies unremarkable. I did recommend inpatient evaluation with cardiology given multiple risk factors prefers to follow-up outpatient and will be discharged stable condition he does understand the risk of leaving. Undiagnosed new problem with uncertain prognosis? @ -No Drug Therapy requiring intensive monitoring for toxicity (Heparin, Nitro, Insulin, Cardizem)? @ -No Were any procedures done? @ -No Diagnosis/symptom? @ -Atypical chest pain Acute, or Chronic, or Acute on Chronic? @ -Acute Uncomplicated (without systemic symptoms) or Complicated (systemic symptoms)? @ -Complicated Side effects of treatment? @ -No Exacerbation, Progression, or Severe Exacerbation? @ -No Poses a threat to life or bodily function? How? (Chest pain, [place], [place], pneumonia, PE, COPD, DKA, ARF, appy, cholecystitis, CVA, Diverticulitis, Homicidal, Suicidal, threat to staff... and all critical care pts) @ -No Disposition Clinical Impression: Atypical chest pain Disposition: HOME SELF-CARE Condition: Stable Instructions (If sedation given, give patient instructions): Chest Pain (ED) Additional Instructions: Please return to the Emergency Department if symptoms worsen or any other concerns. Is patient prescribed a controlled substance at d/c from ED?: No Referrals: Jaime Aguilar MD [Primary Care Provider] - 1-2 days Guillermo Foster MD [STAFF PHYSICIAN] - 1-2 days Time of Disposition: 14:13
--- NOTE | 2024-10-30 13:07 | XR ---
EXAMINATION TYPE: XR chest 2V DATE OF EXAM: 10/30/2024 1:03 PM COMPARISON: 10/28/2017 CLINICAL INDICATION: Male, 44 years old with history of Chest Pain, TECHNIQUE: Frontal and lateral views of the chest are obtained. FINDINGS: There is no focal air space opacity, pleural effusion, or pneumothorax seen. The cardiac silhouette size is within normal limits. The osseous structures are intact. IMPRESSION: No acute cardiopulmonary process. [facility], , 10/30/2024 1:05 PM
[2024-10-30 13:51] VITALS: BP 136/90; PULSE 60; RESP 16
== END 2024-10-30 14:32 | disposition home or self-care (01) ==
LOC: EC 11:08
DX: R07.89 Other chest pain (principal); E11.9 Type 2 diabetes mellitus without complications; E78.5 Hyperlipidemia, unspecified; I10 Essential (primary) hypertension; F17.200 Nicotine dependence, unspecified, uncomplicated; Z88.8 Allergy status to other drugs, medicaments and biological substances
CPT/HCPCS: 36415; 71046; 80053; 83735; 84484; 85025; 85379; 85610; 85730; 93005; 99285

== ENCOUNTER 2024-11-01 10:37 | Observation (INO) | payer OTHER ==
[2024-11-01 11:18] LABS: Basophils # (A) 0.10 10*3/uL (0.00-0.10); Basophils % (A) 0.9 %; Eosinophils # (A) 0.19 10*3/uL (0.04-0.35); Eosinophils % (A) 1.8 %; HCT 46.8 % (39.6-50.0); HGB 16.2 g/dL (13.0-17.0); Lymphocytes # (A) 3.14 10*3/uL (0.90-5.00); Lymphocytes % (A) 29.5 %; MCH 32.5 pg (27.0-32.0); MCHC 34.6 g/dL (32.0-37.0); MCV 93.8 fL (80.0-97.0); Monocytes # (A) 0.76 10*3/uL (0.20-1.00); Monocytes % (A) 7.1 %; Neutrophils # (A) 6.41 10*3/uL (1.80-7.70); Neutrophils % (A) 60.2 %; Platelet Count 166 10*3/uL (140-440); RBC 4.99 10*6/uL (4.40-5.60); RDW 13.0 % (11.5-14.5); WBC 10.65 10*3/uL (4.50-10.00)
--- NOTE | 2024-11-01 11:21 | XR ---
EXAMINATION TYPE: XR chest 2V DATE OF EXAM: 11/01/2024 11:06 AM COMPARISON: 10/30/2024 CLINICAL INDICATION: Male, 44 years old with history of Chest Pain, Chest pain TECHNIQUE: XR chest 2V views of the chest are obtained. FINDINGS: There is no focal air space opacity. No evidence for pneumothorax. No pleural effusion. The cardiac silhouette size is within normal limits. The osseous structures are grossly intact. IMPRESSION: 1. No acute cardiopulmonary process. [facility], , 11/01/2024 11:19 AM
[2024-11-01 11:34] LABS: ALT 313 U/L (4-49); African American GFR (CKD) >90 (>60 ml/min/1.73 sqM); Albumin 4.9 g/dL (3.5-5.0); Anion Gap 9 mmol/L; Blood Urea Nitrogen 17 mg/dL (9-20); Calcium 9.5 mg/dL (8.4-10.2); Carbon Dioxide 24 mmol/L (22-30); Chloride 106 mmol/L (98-107); Glucose 113 mg/dL (74-99); Lipase 819 U/L (23-300); Non-African American GFR(CKD) >90 (>60 ml/min/1.73 sqM); Sodium 139 mmol/L (137-145); Total Protein 8.7 g/dL (6.3-8.2)
[2024-11-01 11:35] LABS: Magnesium 2.0 mg/dL (1.6-2.3); Potassium 5.6 mmol/L (3.5-5.1)
[2024-11-01 11:36] LABS: AST 177 U/L (17-59); Alkaline Phosphatase 56 U/L (38-126)
[2024-11-01] MEDS: NITROGLYCERIN SL TABS 0.4 MG TAB SUBLINGUAL STA (11:47)
[2024-11-01] MEDS: MORPHINE SULFATE 4 MG/ML SYRINGE IVP STA (11:47)
--- NOTE | 2024-11-01 11:47 | ED ---
Chest Pain HPI - General Chief Complaint: Chest Pain Stated Complaint: Chest pain Time Seen by Provider: 11/01/24 10:40 Source: patient, EMS Mode of arrival: EMS - History of Present Illness Initial Comments: 44-year-old male with past medical history of hypertension, hyperlipidemia, diabetes who presents to the emergency department reporting chest pain. He was seen here 2 days ago for same complaint. He was told that they wanted to admit him because of his risk factors but instead he went home. Patient continues to have pain. Described as a sharp shooting sensation of the central portion of his chest. No associated nausea, vomiting or diarrhea. No ripping or tearing sensation to his back. No shortness of breath. Admits to a mild nonproductive cough. He denies any abdominal pain. No numbness, tingling or weakness in his extremities. No other alleviating, precipitating modifying factors - Related Data Home Medications Medication Instructions Recorded Confirmed ALPRAZolam [Xanax] 2 mg PO TID 10/30/24 11/01/24 Gabapentin [Neurontin] 400 mg PO TID 10/30/24 11/01/24 Mirtazapine [Remeron] 30 mg PO HS 10/30/24 11/01/24 OLANZapine 5 mg PO DAILY 10/30/24 11/01/24 OLANZapine 15 mg PO HS 10/30/24 11/01/24 busPIRone HCL 15 mg PO TID 10/30/24 11/01/24 Allergies Allergy/AdvReac Type Severity Reaction Status Date / Time semaglutide [From Ozempic] Allergy Rash/Hives Verified 11/01/24 14:25 ziprasidone [From Geodon] AdvReac PT STATES Verified 11/01/24 14:25 HE ALMOST Review of Systems ROS Statement: Those systems with pertinent positive or pertinent negative responses have been documented in the HPI. ROS Other: All systems not noted in ROS Statement are negative. Past Medical History Past Medical History: GERD/Reflux, Hyperlipidemia, Hypertension Additional Past Medical History / Comment(s): migraines, chronic pain issues in bilateral legs, history of chronic bronchitis., History of Any Multi-Drug Resistant Organisms: None Reported Past Surgical History: Cholecystectomy Additional Past Surgical History / Comment(s): JAW SURGERY S/P FRACTURE-has metal plate and screws. Past Anesthesia/Blood Transfusion Reactions: No Reported Reaction Past Psychological History: Anxiety, Bipolar, Depression, Panic Disorder, PTSD, Schizoaffective Disorder Smoking Status: Current every day smoker Past Alcohol Use History: None Reported Past Drug Use History: Marijuana - Past Family History Father Family Medical History: Liver Disease Additional Family Medical History / Comment(s): Father is alive in his late 60s and has hepatitis C, otherwise healthy. Mother Family Medical History: Diabetes Mellitus Additional Family Medical History / Comment(s): Mother is alive in her late 60s and is a diet controlled diabetic Brother(s) Family Medical History: No Reported History Additional Family Medical History / Comment(s): Patient has 1 brother with no major medical problems. Sister(s) Family Medical History: No Reported History Additional Family Medical History / Comment(s): Patient has 2 sisters with no major medical problems. Patient does not know if he has any children. General Exam General appearance: alert, in no apparent distress Head exam: Present: atraumatic, normocephalic, normal inspection Eye exam: Present: normal appearance, PERRL, EOMI. Absent: scleral icterus, conjunctival injection, periorbital swelling ENT exam: Present: normal exam, mucous membranes moist Neck exam: Present: normal inspection. Absent: tenderness, meningismus, lymphadenopathy Respiratory exam: Present: normal lung sounds bilaterally. Absent: respiratory distress, wheezes, rales, rhonchi, stridor Cardiovascular Exam: Present: regular rate, normal rhythm, normal heart sounds. Absent: systolic murmur, diastolic murmur, rubs, gallop, clicks GI/Abdominal exam: Present: soft, normal bowel sounds. Absent: distended, tenderness, guarding, rebound, rigid Extremities exam: Present: normal inspection, full ROM, normal capillary refill. Absent: tenderness, pedal edema, joint swelling, calf tenderness Back exam: Present: normal inspection Neurological exam: Present: alert, oriented X3, CN II-XII intact Psychiatric exam: Present: normal affect, normal mood Skin exam: Present: warm, dry, intact, normal color. Absent: rash Course Vital Signs 11/01/24 11/01/24 11/01/24 10:39 12:00 14:27 Temperature 96.9 F L Pulse Rate 55 L 62 56 L Respiratory 16 16 16 Rate Blood Pressure 135/77 125/94 130/74 O2 Sat by Pulse 99 96 95 Oximetry Chest Pain MDM - MDM Was pt. sent in by a medical professional or institution (, CESAR, PLATFORM STAPLER, urgent care, hospital, or long term...) When possible be specific @ -No Did you speak to anyone other than the patient for history (EMS, parent, family, police, friend...)? What history was obtained from this source @ -Spoke with EMS for the history Did you review nursing and triage notes (agree or disagree)? Why? @ -I reviewed and agree with nursing and triage notes Were old charts reviewed (outside hosp., previous admission, EMS record, old EKG, old radiological studies, urgent care reports/EKG's, long term records)? Report findings @ -I reviewed the ED visit from yesterday where patient was seen for the same complaint Differential Diagnosis (chest pain, altered mental status, abdominal pain women, abdominal pain men, vaginal bleeding, weakness, fever, dyspnea, syncope, headache, dizziness, GI bleed, back pain, seizure, CVA, palpatations, mental health, musculoskeletal)? @ -Differential Chest Pain: Stable Angina, Unstable Angina, STEMI, NSTEMI Aortic Dissection, Pneumothorax, Musculoskeletal, Esophageal Spasm GERD, Cholecystitis, Pancreatitis, Zoster, this is not meant to be an all-inclusive list. EKG interpreted by me (3pts min.). @ -Yes which demonstrates sinus rhythm with a rate of 61. LA interval 172. QRS 101. QTc of 406. No acute ST segment elevations or depressions X-rays interpreted by me (1pt min.). @ -Yes which demonstrates no acute process CT interpreted by me (1pt min.). @ -Yes which demonstrates no acute process U/S interpreted by me (1pt. min.). @ -None done What testing was considered but not performed or refused? (CT, X-rays, U/S, labs)? Why? @ -None What meds were considered but not given or refused? Why? @ -None Did you discuss the management of the patient with other professionals (professionals i.e. , CESAR, PLATFORM STAPLER, lab, RT, psych nurse, social secretary, dietetic intern, teacher, senior grants officer, rn case mgr)? Give summary @ -Dr. Feliz for the admission Was smoking cessation discussed for >3mins.? @ -No Was critical care preformed (if so, how long)? @ -No Were there social determinants of health that impacted care today? How? (Homelessness, low income, unemployed, alcoholism, drug addiction, transportation, low edu. Level, literacy, decrease access to med. care, longterm, rehab)? @ -No Was there de-escalation of care discussed even if they declined (Discuss DNR or withdrawal of care, Hospice)? DNR status @ -No What co-morbidities impacted this encounter? (DM, HTN, Smoking, COPD, CAD, Cancer, CVA, ARF, Chemo, Hep., AIDS, mental health diagnosis, sleep apnea, morbid obesity)? @ -Hypertension, hyperlipidemia, diabetes Was patient admitted / discharged? Hospital course, mention meds given and route, prescriptions, significant lab abnormalities, going to OR and other pertinent info. @ -Upon arrival patient seen and evaluated in bed 5. Thorough history and physical exam was performed. IV access was established. Laboratory studies are conducted. CT of the abdomen pelvis was performed due to elevated lipase. Discussed results with the patient. Patient will be admitted in order to trend his troponins. GI will be consulted. Patient admitted in stable condition to Dr. Feliz Undiagnosed new problem with uncertain prognosis? @ -No Drug Therapy requiring intensive monitoring for toxicity (Heparin, Nitro, Insulin, Cardizem)? @ -No Were any procedures done? @ -No Diagnosis/symptom? @ -Acute chest pain, elevated lipase Acute, or Chronic, or Acute on Chronic? @ -Acute Uncomplicated (without systemic symptoms) or Complicated (systemic symptoms)? @ -Complicated Side effects of treatment? @ -No Exacerbation, Progression, or Severe Exacerbation? @ -No Poses a threat to life or bodily function? How? (Chest pain, USA, SC, pneumonia, PE, COPD, DKA, ARF, appy, cholecystitis, CVA, Diverticulitis, Homicidal, Suicidal, threat to staff... and all critical care pts) @ -No Disposition Clinical Impression: Atypical chest pain Disposition: ADMITTED IP TO THIS [facility] Condition: Stable Is patient prescribed a controlled substance at d/c from ED?: No Time of Disposition: 13:15 Decision to Admit Reason: Admit from EC Decision Date: 11/01/24 Decision Time: 13:15
[2024-11-01 12:00] LABS: INR 1.0 (<1.2); Partial Thromboplastin Time 24.5 sec (22.0-30.0); Prothrombin Time 10.8 sec (10.0-12.5)
[2024-11-01] MEDS ORDERED: ONDANSETRON 4 MG/2 ML VIAL IVP PRN (13:15)
[2024-11-01] MEDS ORDERED: NALOXONE 0.4 MG/ML 1 ML VIAL IV PRN (13:15)
[2024-11-01] MEDS ORDERED: MORPHINE SULFATE 4 MG/ML SYRINGE IV PRN (13:15)
--- NOTE | 2024-11-01 13:18 | CT ---
EXAMINATION TYPE: CT abdomen pelvis w con DATE OF EXAM: 11/01/2024 COMPARISON: 10/30/2015 CLINICAL INDICATION: Male, 44 years old with history of pancreatitis; PHH, pancreatitis TECHNIQUE: Performed without Oral Contrast and with IV Contrast, patient injected with 100ml mL of Isovue 300. CT DLP: 1699.[address] CTDI: mGy Automated exposure control for dose reduction was used. FINDINGS: The lung bases are clear. There is surgical absence of the gallbladder. There is no biliary ductal dilatation. There is no focal mass or organomegaly involving the liver, pancreas, spleen or adrenal glands. There is moderate to marked liver steatosis. There is no CT evidence of acute or chronic pancreatitis. There is no solid renal mass or hydronephrosis and there is homogeneous contrast enhancement of the r enal parenchyma. The caliber the abdominal aorta is normal is no retroperitoneal adenopathy or hemorr sterling. The bowel loops are normal in caliber and there is no evidence of dilatation or obstruction. No infla mmatory changes are identified in the bowel wall or mesentery. There is no free intraperitoneal air or fluid. No pelvic mass, free fluid, abscess or adenopathy. The osseous structures and soft tissues are intact. IMPRESSION: 1. No CT evidence of acute or chronic pancreatitis. 2. Cholecystectomy. 3. Moderate to marked liver steatosis [facility], Workstation: ROLO 11/01/2024 1:15 PM
[2024-11-01] MEDS: SODIUM CHLORIDE 0.9% 1,000 ML IV SCH (13:48)
[2024-11-01] MEDS ORDERED: DEXTROSE 50% SYRINGE 50 ML IVP PRN ×2 (14:08)
[2024-11-01] MEDS: PANTOPRAZOLE 40 MG/10 ML VIAL IVP SCH (14:19)
[2024-11-01] MEDS: GABAPENTIN 100 MG CAP PO SCH (16:25)
[2024-11-01 16:44] LABS: Glucose,Whole Blood 142 mg/dL (70-110)
[2024-11-01] MEDS: INSULIN LISPRO (HumaLOG) 100 UNIT/ML 10 mL VL SQ SCH (16:45)
--- NOTE | 2024-11-01 16:57 | HP ---
HISTORY AND PHYSICAL CHIEF COMPLAINT: Chest pain. HISTORY OF PRESENT ILLNESS: This is a 44-year-old gentleman with past medical history significant for depression, panic disorder, PTSD, schizoaffective disorder, was complaining of chest pain. The patient was apparently came to the [facility] a few days ago and refused admission. Currently, the patient complains of chest pain in the left upper part and the patient admitted for further evaluation and treatment. The patient also had elevated amylase, lipase indicating possible acute pancreatitis also. There is no history of fever, rigors, chills at this time. PAST MEDICAL HISTORY: History of hypertension, hyperlipidemia, history of migraine. Rest of the history and chart is also reviewed. HOME MEDICATIONS: Reviewed include buspirone, dose and rest medications reviewed, not confirmed yet. ALLERGIES: Geodon. FAMILY HISTORY: History of liver disease in the family. SOCIAL HISTORY: History of smoking. No history of alcohol intake. REVIEW OF SYSTEMS: 14-point review of systems negative except as mentioned earlier. PHYSICAL EXAMINATION: VITAL SIGNS: Pulse is 55, blood pressure 135/77, respirations 16. HEENT: Conjunctivae normal. NECK: No JVD. CARDIOVASCULAR: S1, S2. RESPIRATIONS: Breath sounds diminished at the bases. ABDOMEN: Soft, nontender. No mass. EXTREMITIES: Legs, no edema. NERVOUS SYSTEM: Nonfocal. LABORATORY DATA: WBC 10.65. ASSESSMENT: 1. Chest pain, possible unstable angina. 2. Elevated lipase and LFTs, possibly acute pancreatitis. 3. History of hypertension. 4. History of hyperlipidemia. 5. History of migraine. 6. Anxiety, bipolar depression, panic disorder, posttraumatic stress disorder, schizoaffective disorder. 7. History of nicotine dependence. RECOMMENDATIONS: This is a 44-year-old gentleman who presented with multiple complex medical issues. We will monitor the patient closely. Continue current management. Rule out myocardial infarction. Cardiology consultation. The patient also has elevated LFTs and lipase. Also given the patient is not symptomatic, I would recommend CT scan of the abdomen and pelvis also to complete the workup. Otherwise, Cardiology and Gastroenterology consultation have been sought. Guarded prognosis. Further recommendations to follow. MMODL / IJN: [id number] /
[2024-11-01] MEDS: MIRTAZAPINE 15 MG TAB PO SCH (21:00)
[2024-11-01 21:18] LABS: Glucose,Whole Blood 133 mg/dL (70-110)
[2024-11-02] MEDS: KETOROLAC 15 MG/ML 1 ML VIAL IVP PRN (02:28)
[2024-11-02 03:58] LABS: Basophils # (A) 0.09 10*3/uL (0.00-0.10); Basophils % (A) 1.0 %; Eosinophils # (A) 0.30 10*3/uL (0.04-0.35); Eosinophils % (A) 3.3 %; HCT 44.5 % (39.6-50.0); HGB 15.5 g/dL (13.0-17.0); Lymphocytes # (A) 2.63 10*3/uL (0.90-5.00); Lymphocytes % (A) 28.5 %; MCH 33.0 pg (27.0-32.0); MCHC 34.8 g/dL (32.0-37.0); MCV 94.9 fL (80.0-97.0); Monocytes # (A) 0.69 10*3/uL (0.20-1.00); Monocytes % (A) 7.5 %; Neutrophils # (A) 5.46 10*3/uL (1.80-7.70); Neutrophils % (A) 59.2 %; Platelet Count 174 10*3/uL (140-440); RBC 4.69 10*6/uL (4.40-5.60); RDW 13.2 % (11.5-14.5); WBC 9.22 10*3/uL (4.50-10.00)
[2024-11-02 04:12] LABS: ALT 229 U/L (4-49); AST 97 U/L (17-59); African American GFR (CKD) >90 (>60 ml/min/1.73 sqM); Albumin 3.6 g/dL (3.5-5.0); Alkaline Phosphatase 63 U/L (38-126); Amylase 50 U/L (30-110); Anion Gap 8 mmol/L; Blood Urea Nitrogen 18 mg/dL (9-20); Calcium 8.7 mg/dL (8.4-10.2); Carbon Dioxide 22 mmol/L (22-30); Chloride 108 mmol/L (98-107); Glucose 156 mg/dL (74-99); Lipase 340 U/L (23-300); Non-African American GFR(CKD) 90 (>60 ml/min/1.73 sqM); Potassium 4.2 mmol/L (3.5-5.1); Sodium 138 mmol/L (137-145); Total Protein 6.6 g/dL (6.3-8.2)
[2024-11-02 06:20] LABS: Glucose,Whole Blood 146 mg/dL (70-110)
[2024-11-02 08:37] LABS: Cholesterol 143.00 mg/dL (0.00-200.00); HDL Cholesterol 32.90 mg/dL (40.00-60.00); LDL Cholesterol,Calculated 78.5 mg/dL (0.0-131.0); Triglycerides 158.00 mg/dL (0.00-149.00); VLDL Calculation 31.60 mg/dL (5.00-40.00)
[2024-11-02 10:18] VITALS: BP 116/77; PULSE 52; RESP 16; TEMP 98
[2024-11-02] MEDS: OLANZapine 5 MG TAB PO SCH (10:28)
--- NOTE | 2024-11-02 11:07 | P.CRDCN ---
History of Present Illness History of present illness: HISTORY OF PRESENT ILLNESS: This is a 44-year-old male with a past medical history significant for hypertension, borderline diabetes, cholecystectomy, anxiety, bipolar disorder, PTSD, schizophrenia, and recent smoking cessation. Patient does not follow with a display maker. We have been asked to see the patient in consultation for chest pain. Patient examined at the bedside. Patient presented to the hospital with a chief complaint of chest discomfort. Patient states he was at work when he began to have chest discomfort and EMS was called to bring him to the hospital. He reports having pain in the left side of his chest for the past week or 2. He states it would last for a few minutes and then goes away. He states the pain is not exertionally related. He does not report any shortness of breath. He does report having some dizziness. He does have a history of hypertension and was prescribed lisinopril on an outpatient basis but is not taking it. Additionally he states that he was prescribed metformin for diabetes but it gave him a rash and he is no longer taking that as well. He denies any alcohol use. He states that he recently stopped smoking. DIAGNOSTICS: - EKG reveals sinus mechanism with no signs of acute ischemia. - Chest xray negative for acute process. - Laboratory data: Troponin negative x 3. AST 177. Repeat 97. ALT 313. Repeat 229. Lipase 819. Repeat 340. Amylase 50. - Current home cardiac medications include none. - No previous echocardiogram, stress test, or cardiac catheterization available in EMR for review REVIEW OF SYSTEMS: At the time of my exam: CONSTITUTIONAL: Denies fever or chills. HEENT: Denies blurred vision, vision changes, or eye pain. Denies hemoptysis CARDIOVASCULAR: Denies chest pain. Denies orthopnea. Denies PND. Denies palpitations RESPIRATORY: Denies shortness of breath. GASTROINTESTINAL: Denies abdominal pain. Denies nausea or vomiting. HEMATOLOGIC: Denies bleeding disorders. GENITOURINARY: Denies any blood in urine. SKIN: Denies pruitis. Denies rash. PHYSICAL EXAM: VITAL SIGNS: Reviewed. GENERAL: Well-developed in no acute distress. HEENT: Head is normocephalic. Pupils are equal, round. Sclerae anicteric. Mucous membranes of the mouth are moist. Neck supple. No JVD or thyromegaly LUNGS: Respirations even and unlabored. Lungs essentially clear to auscultation bilaterally. HEART: Regular rate and rhythm. S1 and S2 heard. ABDOMEN: Soft. Nondistended. Nontender. EXTREMITIES: Normal range of motion. No clubbing or cyanosis. Peripheral pulses intact. No lower extremity edema NEUROLOGIC: Awake and alert. Oriented x 3. ASSESSMENT: Chest pain, troponin negative x 3 Elevated lipase and LFTs Reported history of hypertension, prescribed lisinopril on an outpatient basis however not taking it, currently normotensive Borderline diabetes, on metformin outpatient, also not taking it History of cholecystectomy History of anxiety History of bipolar disorder History of PTSD History of schizophrenia Recent cessation from smoking Obesity: BMI 32.5 PLAN: An acute coronary event has been ruled out Obtain 2D echo to assess cardiac structure and function Patient to undergo stress echocardiogram today If negative, patient may be discharged home from a cardiac standpoint Nurse practitioner note has been reviewed by physician. Signing provider agrees with the documented findings, assessment, and plan of care documented by HOME AND SCHOOL VISITOR as a scribe. Past Medical History Past Medical History: GERD/Reflux, Hyperlipidemia, Hypertension Additional Past Medical History / Comment(s): migraines, chronic pain issues in bilateral legs, history of chronic bronchitis., History of Any Multi-Drug Resistant Organisms: None Reported Past Surgical History: Cholecystectomy Additional Past Surgical History / Comment(s): JAW SURGERY S/P FRACTURE-has metal plate and screws. Past Anesthesia/Blood Transfusion Reactions: No Reported Reaction Past Psychological History: Anxiety, Bipolar, Depression, Panic Disorder, PTSD, Schizoaffective Disorder Additional Psychological History / Comment(s): Pt resides with his mother. He is independent. He drives. Smoking Status: Current every day smoker Past Alcohol Use History: None Reported Additional Past Alcohol Use History / Comment(s): Pt states he started smoking at age 14 (1994) and smokes 6 packs a day and rolls his own cigarettes. He states he smokes marijuana "1 joint a week." Pt. has a medical marijuana card. He denies any other street drug use. He denies any alcohol use and has had none for 6 years due to alcohol abuse. Past Drug Use History: Marijuana Additional Drug Use History / Comment(s): smokes marajuana once a week. - Past Family History Father Family Medical History: Liver Disease Additional Family Medical History / Comment(s): Father is alive in his late 60s and has hepatitis C, otherwise healthy. Mother Family Medical History: Diabetes Mellitus Additional Family Medical History / Comment(s): Mother is alive in her late 60s and is a diet controlled diabetic Brother(s) Family Medical History: No Reported History Additional Family Medical History / Comment(s): Patient has 1 brother with no major medical problems. Sister(s) Family Medical History: No Reported History Additional Family Medical History / Comment(s): Patient has 2 sisters with no major medical problems. Patient does not know if he has any children. Medications and Allergies Home Medications Medication Instructions Recorded Confirmed Type ALPRAZolam [Xanax] 2 mg PO TID 10/30/24 11/01/24 History Gabapentin [Neurontin] 400 mg PO TID 10/30/24 11/01/24 History Mirtazapine [Remeron] 30 mg PO HS 10/30/24 11/01/24 History OLANZapine 5 mg PO DAILY 10/30/24 11/01/24 History OLANZapine 15 mg PO HS 10/30/24 11/01/24 History busPIRone HCL 15 mg PO TID 10/30/24 11/01/24 History Allergies Allergy/AdvReac Type Severity Reaction Status Date / Time semaglutide [From Ozempic] Allergy Rash/Hives Verified 11/01/24 14:25 ziprasidone [From Geodon] AdvReac PT STATES Verified 11/01/24 14:25 HE ALMOST Physical Exam Vitals: Vital Signs Temp Pulse Pulse Resp BP BP Pulse Ox 11/02/24 02:19 97.5 F L 65 17 128/85 98 11/01/24 20:01 97.5 F L 52 L 18 116/74 97 11/01/24 15:00 97.8 F 51 L 18 134/94 98 11/01/24 14:27 56 L 16 130/74 95 11/01/24 12:00 62 16 125/94 96 11/01/24 10:39 96.9 F L 55 L 16 135/77 99 Intake and Output 11/01/24 11/02/24 11/02/24 22:59 06:59 14:59 Other: # Voids 1 # Bowel Movements 0 Results 11/02/24 03:35 11/02/24 03:35 Cardiac Enzymes 11/01/24 11/01/24 11/01/24 Range/Units 10:57 10:57 16:27 AST 177 H (17-59) U/L Troponin I 0.017 <0.012 (0.000-0.034) ng/mL 11/01/24 11/02/24 Range/Units 17:48 03:35 AST 97 H (17-59) U/L Troponin I <0.012 (0.000-0.034) ng/mL Coagulation 11/01/24 Range/Units 10:57 PT 10.8 (10.0-12.5) sec APTT 24.5 (22.0-30.0) sec Lipids 11/02/24 Range/Units 03:35 Triglycerides 158.00 H (0.00-149.00) mg/dL Cholesterol 143.00 (0.00-200.00) mg/dL HDL Cholesterol 32.90 L (40.00-60.00) mg/dL Cholesterol/HDL Ratio 4.35 Ratio CBC 11/01/24 11/02/24 Range/Units 10:57 03:35 WBC 10.65 H 9.22 (4.50-10.00) 10*3/uL RBC 4.99 4.69 (4.40-5.60) 10*6/uL Hgb 16.2 15.5 (13.0-17.0) g/dL Hct 46.8 44.5 (39.6-50.0) % Plt Count 166 174 (140-440) 10*3/uL Comprehensive Metabolic Panel 11/01/24 11/02/24 Range/Units 10:57 03:35 Sodium 139 138 (137-145) mmol/L Potassium 5.6 H 4.2 (3.5-5.1) mmol/L Chloride 106 108 H (98-107) mmol/L Carbon Dioxide 24 22 (22-30) mmol/L BUN 17 18 (9-20) mg/dL Creatinine 0.82 1.02 (0.66-1.25) mg/dL Glucose 113 H 156 H (74-99) mg/dL Calcium 9.5 8.7 (8.4-10.2) mg/dL AST 177 H 97 H (17-59) U/L ALT 313 H 229 H (4-49) U/L Alkaline Phosphatase 56 63 (38-126) U/L Total Protein 8.7 H 6.6 (6.3-8.2) g/dL Albumin 4.9 3.6 (3.5-5.0) g/dL Current Medications Generic Name Dose Route Start Last Admin Trade Name Freq PRN Reason Stop Dose Admin Buspirone HCl 15 mg 11/01/24 16:00 11/01/24 21:01 Buspirone Hcl 5 Mg Tab PO 15 mg TID GABRIELA Administration Dextrose/Water 25 ml 11/01/24 14:08 Dextrose 50% Syringe 50 Ml IVP PER PROTOCOL PRN Hypoglycemia Protocol Dextrose/Water 50 ml 11/01/24 14:08 Dextrose 50% Syringe 50 Ml IVP PER PROTOCOL PRN Hypoglycemia Protocol Gabapentin 100 mg 11/01/24 16:00 11/01/24 21:01 Gabapentin 100 Mg Cap PO 100 mg TID GABRIELA Administration Sodium Chloride 1,000 mls @ 130 mls/hr 11/01/24 13:15 11/02/24 05:01 Saline 0.9% IV Not Given .[id number] GABRIELA Insulin Human Lispro 0 unit 11/01/24 17:30 11/02/24 06:29 Insulin Lispro (Humalog) 100 Unit/Ml 10 Ml Vl SQ Not Given ACHS [facility] Protocol Ketorolac Tromethamine 15 mg 11/01/24 13:15 11/02/24 02:28 Ketorolac 15 Mg/Ml 1 Ml Vial IVP 11/04/24 13:17 15 mg Q6HR PRN Administration Moderate Pain (Scale 4 to 6) Mirtazapine 30 mg 11/01/24 21:00 11/01/24 21:00 Mirtazapine 15 Mg Tab PO 30 mg HS GABRIELA Administration Morphine Sulfate 4 mg 11/01/24 13:15 Morphine Sulfate 4 Mg/Ml Syringe IV Q4HR PRN Severe Pain (Scale 7 to 10) Naloxone HCl 0.2 mg 11/01/24 13:15 Naloxone 0.4 Mg/Ml 1 Ml Vial IV Q2M PRN Opioid Reversal Olanzapine 5 mg 11/02/24 09:00 Olanzapine 5 Mg Tab PO DAILY GABRIELA Olanzapine 15 mg 11/01/24 21:00 11/01/24 21:01 Olanzapine 7.5 Mg Tab PO 15 mg HS GABRIELA Administration Ondansetron HCl 4 mg 11/01/24 13:15 Ondansetron 4 Mg/2 Ml Vial IVP Q8HR PRN Nausea And Vomiting Pantoprazole Sodium 40 mg 11/01/24 14:15 11/01/24 14:19 Pantoprazole 40 Mg/10 Ml Vial IVP 40 mg DAILY GABRIELA Administration Intake and Output 11/01/24 11/02/24 11/02/24 22:59 06:59 14:59 Other: # Voids 1 # Bowel Movements 0 11/02/24 03:35 11/02/24 03:35
[2024-11-02 11:17] LABS: Bilirubin,Urine Negative (Negative); Blood,Urine Negative (Negative); Color,Urine Light Yellow; Glucose,Urine (UA) Negative (Negative); Ketones,Urine Negative (Negative); Leukocyte Esterase,Urine Negative (Negative); Nitrite,Urine Negative (Negative); PH, Urine 5.0 (5.0-8.0); Protein,Urine Negative (Negative); Specific Gravity,Urine 1.030 (1.001-1.035); Urobilinogen,Urine <2.0 mg/dL (<2.0)
[2024-11-02 11:29] LABS: Barbiturate Screen,Urine Not Detected (NotDetected); Benzodiazepines Screen,Urine Detected (NotDetected); Opiate Screen,Urine Detected (NotDetected); Oxycodone Screen, Urine Not Detected (NotDetected); Phencyclidine Screen,Urine Not Detected (NotDetected); Tricyclic Antidepressant,Urine Not Detected (NotDetected); Urn Cannabinoid Scrn Detected (NotDetected)
[2024-11-02 11:40] LABS: Glucose,Whole Blood 145 mg/dL (70-110)
--- NOTE | 2024-11-02 13:18 | P.CONS ---
History of Present Illness - Reason for Consult Consult date: 11/02/24 Transaminitis Requesting physician: Vasile Feliz - Chief Complaint Chest pain - History of Present Illness This a pleasant 44-year-old male with a history of diabetes mellitus hypertension and hyperlipidemia who presented to the emergency department with reports of acute chest pain that started about 3 days ago over left side of his chest. Apparently patient was here in the emergency department 2 days ago and was told to stay for further workup had mildly elevated lipase and elevated liver enzymes however patient went home. He returned back with continued chest pain. Patient was known to have elevated liver enzymes and gastroenterology was consulted. He has a past medical history including cholecystectomy many years ago and believes for infected gallbladder, type 2 diabetes diagnosed a few years ago and recently started Ozempic about 2 weeks ago, depression, panic disorder, PTSD and schizoaffective disorder. Patient denies any history of liver disease. He had a CT of the abdomen pelvis that showed moderate liver steatosis no CBD dilation. Denies any previous history of pancreatitis. Denies any history of alcoholism. Reviewing patient's labs does. That patient has had elevated AST and ALT since 2016, patient states he was not aware. Patient denies any abdominal pain, epigastric or right upper quadrant abdominal pain. Denies any fevers or chills. No nausea or vomiting. Review of Systems REVIEW OF SYSTEMS: CARDIOPULMONARY: Patient reports chest pain mostly on the left side with chest. Shortness of breath. Gastrointestinal: No abdominal pain. No nausea or vomiting. No hematemesis, coffee-ground emesis. No rectal bleeding, or melena. GENITOURINARY: No dysuria or hematuria. MUSCULOSKELETAL: Reports normal range of motion., Joint pain. SKIN: No rashes. No jaundice. ENDOCRINE: No chills, fevers. No excessive weight gain or loss. No polydipsia or polyuria. PSYCHIATRIC: Unremarkable. NEUROLOGY: No change in mental status. Denies dizziness, headache. ENT: Vision unremarkable. CONSTITUTIONAL: No recent weight loss. No fever, chills, night sweats. Past Medical History Past Medical History: GERD/Reflux, Hyperlipidemia, Hypertension Additional Past Medical History / Comment(s): migraines, chronic pain issues in bilateral legs, history of chronic bronchitis., History of Any Multi-Drug Resistant Organisms: None Reported Past Surgical History: Cholecystectomy Additional Past Surgical History / Comment(s): JAW SURGERY S/P FRACTURE-has metal plate and screws. Past Anesthesia/Blood Transfusion Reactions: No Reported Reaction Past Psychological History: Anxiety, Bipolar, Depression, Panic Disorder, PTSD, Schizoaffective Disorder Additional Psychological History / Comment(s): Pt resides with his mother. He is independent. He drives. Smoking Status: Current every day smoker Past Alcohol Use History: None Reported Additional Past Alcohol Use History / Comment(s): Pt states he started smoking at age 14 (1994) and smokes 6 packs a day and rolls his own cigarettes. He states he smokes marijuana "1 joint a week." Pt. has a medical marijuana card. He denies any other street drug use. He denies any alcohol use and has had none for 6 years due to alcohol abuse. Past Drug Use History: Marijuana Additional Drug Use History / Comment(s): smokes marajuana once a week. - Past Family History Father Family Medical History: Liver Disease Additional Family Medical History / Comment(s): Father is alive in his late 60s and has hepatitis C, otherwise healthy. Mother Family Medical History: Diabetes Mellitus Additional Family Medical History / Comment(s): Mother is alive in her late 60s and is a diet controlled diabetic Brother(s) Family Medical History: No Reported History Additional Family Medical History / Comment(s): Patient has 1 brother with no major medical problems. Sister(s) Family Medical History: No Reported History Additional Family Medical History / Comment(s): Patient has 2 sisters with no major medical problems. Patient does not know if he has any children. Medications and Allergies Home Medications Medication Instructions Recorded Confirmed Type ALPRAZolam [Xanax] 2 mg PO TID 10/30/24 11/01/24 History Gabapentin [Neurontin] 400 mg PO TID 10/30/24 11/01/24 History Mirtazapine [Remeron] 30 mg PO HS 10/30/24 11/01/24 History OLANZapine 5 mg PO DAILY 10/30/24 11/01/24 History OLANZapine 15 mg PO HS 10/30/24 11/01/24 History busPIRone HCL 15 mg PO TID 10/30/24 11/01/24 History Allergies Allergy/AdvReac Type Severity Reaction Status Date / Time semaglutide [From Ozempic] Allergy Rash/Hives Verified 11/01/24 14:25 ziprasidone [From Geodon] AdvReac PT STATES Verified 11/01/24 14:25 HE ALMOST Physical Exam Vitals: Vital Signs Temp Pulse Pulse Resp BP BP Pulse Ox 11/02/24 02:19 97.5 F L 65 17 128/85 98 11/01/24 20:01 97.5 F L 52 L 18 116/74 97 11/01/24 15:00 97.8 F 51 L 18 134/94 98 11/01/24 14:27 56 L 16 130/74 95 11/01/24 12:00 62 16 125/94 96 11/01/24 10:39 96.9 F L 55 L 16 135/77 99 Intake and Output 11/01/24 11/02/24 11/02/24 22:59 06:59 14:59 Other: # Voids 1 # Bowel Movements 0 General appearance: The patient is alert, oriented, appears in no acute distress. HET: Head is normocephalic and atraumatic. Conjunctiva pink. Sclera anicteric. Neck: Supple without lymphadenopathy. Trachea midline. Heart: Regular. Lungs: Equal expansion, normal respiratory effort. Abdomen: Soft, nontender, nondistended. Skin: No rashes. No jaundice. Extremities: Normal skin color and turgor. No pedal edema. Neurological: No focal deficits. Alert and oriented x3. Results CBC & Chem 7: 11/02/24 03:35 11/02/24 03:35 Labs: Abnormal Lab Results - Last 24 Hours (Table) 11/01/24 11/01/24 11/01/24 Range/Units 10:57 10:57 16:43 WBC 10.65 H (4.50-10.00) 10*3/uL MCH 32.5 H (27.0-32.0) pg Immature Gran # 0.05 H (0.00-0.04) 10*3/uL Potassium 5.6 H (3.5-5.1) mmol/L Chloride (98-107) mmol/L Glucose 113 H (74-99) mg/dL POC Glucose (mg/dL) 142 H (70-110) mg/dL Hemoglobin A1c (<=6.0) % AST 177 H (17-59) U/L ALT 313 H (4-49) U/L Total Protein 8.7 H (6.3-8.2) g/dL Triglycerides (0.00-149.00) mg/dL HDL Cholesterol (40.00-60.00) mg/dL Lipase 819 H (23-300) U/L 11/01/24 11/02/24 11/02/24 Range/Units 21:16 03:35 03:35 WBC (4.50-10.00) 10*3/uL MCH 33.0 H (27.0-32.0) pg Immature Gran # 0.05 H (0.00-0.04) 10*3/uL Potassium (3.5-5.1) mmol/L Chloride (98-107) mmol/L Glucose (74-99) mg/dL POC Glucose (mg/dL) 133 H (70-110) mg/dL Hemoglobin A1c 6.7 H (<=6.0) % AST (17-59) U/L ALT (4-49) U/L Total Protein (6.3-8.2) g/dL Triglycerides (0.00-149.00) mg/dL HDL Cholesterol (40.00-60.00) mg/dL Lipase (23-300) U/L 11/02/24 11/02/24 Range/Units 03:35 06:18 WBC (4.50-10.00) 10*3/uL MCH (27.0-32.0) pg Immature Gran # (0.00-0.04) 10*3/uL Potassium (3.5-5.1) mmol/L Chloride 108 H (98-107) mmol/L Glucose 156 H (74-99) mg/dL POC Glucose (mg/dL) 146 H (70-110) mg/dL Hemoglobin A1c (<=6.0) % AST 97 H (17-59) U/L ALT 229 H (4-49) U/L Total Protein (6.3-8.2) g/dL Triglycerides 158.00 H (0.00-149.00) mg/dL HDL Cholesterol 32.90 L (40.00-60.00) mg/dL Lipase 340 H (23-300) U/L Comments: CT abdomen pelvis with contrast report no CT evidence of acute or chronic pancreatitis. Cholecystectomy. Moderate to marked liver steatosis. Assessment and Plan (1) Elevated LFTs Narrative/Plan: 34-year-old male presenting with left-sided chest pain noted to have elevated LFTs with a history of elevated LFTs dating back to 2016 without any reported history of known liver disease. CT abdomen without any acute findings other than moderate hepatic steatosis. Patient does have a history of diabetes mellitus, likely elevated LFTs secondary to fatty liver disease. Patient also noted to have a mildly elevated lipase so need to consider possibility of acute pancreatitis. LFTs and pancreatitis may be also caused secondary to recent Ozempic use for diabetes mellitus. Discussed with patient may need to consider discontinuation of medication. Current Visit: Yes Status: Acute Code(s): R79.89 - OTHER SPECIFIED ABNORMAL FINDINGS OF BLOOD CHEMISTRY SNOMED Code(s): 857519287 (2) Elevated lipase Narrative/Plan: Mild elevation of lipase max 819 with improvement to 340 today. Possible uncomplicated mild pancreatitis unknown etiology however may be secondary to medication recently started on Ozempic for diabetes mellitus. Current Visit: Yes Status: Acute Code(s): R74.8 - ABNORMAL LEVELS OF OTHER SERUM ENZYMES SNOMED Code(s): 345397381 (3) Chest pain Current Visit: Yes Status: Acute Code(s): R07.9 - CHEST PAIN, UNSPECIFIED SNOMED Code(s): 06600632 (4) Diabetes mellitus Current Visit: Yes Status: Acute Code(s): E11.9 - TYPE 2 DIABETES MELLITUS WITHOUT COMPLICATIONS SNOMED Code(s): 44458326 Plan: 1. Continue symptomatic and supportive care 2. Continue with workup from cardiology rule out acute coronary event 3. Repeat daily CMP 4. Avoid hepatotoxic medications. Discussed with patient may need to discontinue Ozempic, possible mild uncomplicated pancreatitis secondary to medication 5. Recommend outpatient follow-up with gastroenterology for elevated LFTs, hepatic steatosis Thank you for this consultation, patient is cleared from gastroenterology for discharge. Dr. Mike Burroughs I agree with the dictator's note, documented as a scribe by Marely Celestin.
--- NOTE | 2024-11-02 13:56 | CA ---
Stress Echo Report Hermes Guevara Age: 44 Gender: M : 1980 Exam Date: 11/02/2024 11:59 Exam Location: [facility] Ht (in): 72 Wt (lb): 240 Ordering Physician: Hillary Almanza Referring Physician: [id number] Still Tender: Rimma Banks RDCS Technologist Procedure CPT: Indication: CP ICD-9 Codes: Rhythm: Patient History: CHEST PAIN, DIABETIC, PALPITATIONS, HYPERCHOLESTEROLEMIA, CURRENT SMOKER 0.25 PPD X 20 YEARS Cardiac Medications: SEE CHART,,,,, Medications in past 24 hours: Contrast: Stress Results Protocol: Brijesh Total dose(mL): Exercise Duration (min:sec): 7:[address] Depression (mm): Angina Score: Varela Score: METS: 8.5 Resting HR: 67 Resting BP: 106 / 80 Peak HR: 159 Peak BP: 203 / 76 Max Predicted HR: 177 90 % Max Predicted HR Target HR: 150 Double Product: [id number] Stress Summary: BP Response: Reason for Termination: MAX EXERTION/TARGET HR Cardiac Symptoms: TIRED,FOOT PAIN ECG Analysis Resting ECG: Normal sinus rhythm, Minor resting ST/T wave changes Stress ECG: No abnormal ST/T wave changes with exercise Arrhythmia: Occasional APCs Echo Analysis Resting Echo: Normal resting echocardiogram. Peak Echo Analysis: Normal wall motion augmentation with no hypokinesis or dyskinesis MEASUREMENTS (Male/Female) Normal Values CONCLUSIONS 1. Good exercise tolerance with no evidence of electrocardiographic changes 2. Normal stress echocardiogram with no evidence of stress- induced ischemia Dr. Apoorva Mcdowell MD (Electronically Signed) Final Date: 02 November 2024 13:55
--- NOTE | 2024-11-02 14:00 | CA ---
Transthoracic Echo Report Name: Hermes Guevara Age: 44 Gender: M : 1980 Exam Date: 11/02/2024 09:14 Exam Location: [facility] Ht (in): 72 Wt (lb): 240 Ordering Physician: Hillary Almanza Attending/Referring Phys: [id number], Archie Alberene Stone Setter Lex Martinez RDCS Procedure CPT: Indications: Chest Pain Cardiac Hx: Technical Quality: Good Contrast 1: Total Dose (mL): Contrast 2: Total Dose (mL): MEASUREMENTS (Male / Female) Normal Values 2D ECHO LV Diastolic Diameter PLAX 4.9 cm 4.2 - 5.9 / 3.9 - 5.3 cm LV Systolic Diameter PLAX 3.2 cm IVS Diastolic Thickness 1.1 cm 0.6 - 1.0 / 0.6 - 0.9 cm LVPW Diastolic Thickness 1.2 cm 0.6 - 1.0 / 0.6 - 0.9 cm LV Relative Wall Thickness 0.5 RV Internal Dim ED PLAX 2.9 cm LVOT Diameter 2.2 cm LA Systolic Diameter LX 3.9 cm 3.0 - 4.0 / 2.7 - 3.8 cm LV Diastolic Volume MOD BP 116.3 cm??? 67 - 155 / 56 - 104 cm??? LV Systolic Volume MOD BP 49.3 cm??? 22 - 58 / 19 - 49 cm??? LV Ejection Fraction MOD BP 57.6 % >= 55 % LV Diastolic Volume MOD 4C 107.7 cm??? LV Systolic Volume MOD 4C 47.5 cm??? LV Ejection Fraction MOD 4C 55.9 % LV Diastolic Length 4C 9.0 cm LV Systolic Length 4C 7.3 cm LV Diastolic Volume MOD 2C 123.3 cm??? LV Systolic Volume MOD 2C 49.4 cm??? LV Ejection Fraction MOD 2C 59.9 % LV Diastolic Length 2C 8.8 cm LV Systolic Length 2C 7.6 cm LA Volume 54.6 cm??? 18 - 58 / 22 - 52 cm??? LA Volume Index 22.9 cm???/m??? 16 - 28 cm???/m??? Aorta at Sinotubular Diameter 3.2 cm DOPPLER MV Area PHT 3.5 cm??? Mitral E Point Velocity 67.5 cm/s Mitral A Point Velocity 61.3 cm/s Mitral E to A Ratio 1.1 MV Deceleration Time 215.6 ms TR Peak Velocity 195.9 cm/s TR Peak Gradient 15.4 mmHg FINDINGS Left Ventricle Left ventricular ejection fraction is estimated at 55-60 %. No obvious regional wall motion abnormalities. Left ventricular cavity size normal.Mildly increased left ventricular wall thickness. Right Ventricle Mild right ventricular dilatation. Right ventricular systolic pressure within normal limits. Right Atrium Normal right atrial size. Left Atrium Normal left atrial size. Mitral Valve Structurally normal mitral valve. No mitral stenosis. Mild mitral regurgitation. Aortic Valve Trileaflet aortic valve. Aortic valve sclerosis. No aortic valve stenosis or regurgitation. Tricuspid Valve Structurally normal tricuspid valve. No tricuspid stenosis. mild tricuspid regurgitation. Pulmonic Valve Structurally normal pulmonic valve. No pulmonic stenosis. Trace pulmonic regurgitation. Pericardium No pericardial effusion. Aorta Normal size aortic root and proximal ascending aorta. CONCLUSIONS 1. Normal left ventricular size and systolic function 2. Mild mitral and tricuspid regurgitation Previewed by: Dr. Apoorva Mcdowell MD (Electronically Signed) Final Date: 02 November 2024 13:59
--- NOTE | 2024-11-05 11:49 | P.DS ---
Providers Date of admission: 11/01/24 13:15 Expected date of discharge: 11/02/24 Attending physician: Vasile Feliz Consults: 11/01/24 13:15 Consult Physician Urgent Consulting Provider: [facility] Consult Reason/Comments: acute chest pain Do you want consulting provider notified?: Yes Consult Physician Urgent Consulting Provider: Torrie Burroughs Consult Reason/Comments: elevated liver enzymes Do you want consulting provider notified?: Yes Primary care physician: Jaime Aguilar Hospital Course: Final diagnosis Chest pain, possible unstable angina, ruled out ACS Status post stress testing negative for ischemia Elevated lipase and LFT, acute pancreatitis, improving History of hypertension History of hyperlipidemia History of migraines Anxiety, bipolar depression, panic disorder, posttraumatic stress disorder, schizoaffective disorder History of nicotine dependence Occasional alcohol use, sometimes daily Obesity with a BMI of 32.5 GI prophylaxis DVT prophylaxis Full code Discharge disposition Patient is being discharged in a stable condition with guarded prognosis to home. Patient will follow-up with Dr. Jaime Aguilar in the outpatient setting upon discharge. Patient is to continue with current medication outpatient follow-up with GI as well as cardiology as scheduled. Total time taken is greater than 35 minutes. Hospital course This is a 44-year-old male who was recently admitted with chest pain along with elevated amylase, lipase with concerns of possible acute pancreatitis. Patient was not reporting any abdominal pain and was evaluated by GI noted to have elevated LFTs recommend complete alcohol cessation and outpatient follow-up with repeat labs in the outpatient setting. Patient was evaluated by cardiology underwent stress testing which was negative and has cleared the patient for discharge. Patient instructed to continue with a low fiber diet and outpatient follow-up with cardiology, primary care provider as well as GI as scheduled. Please refer to consultation notes for further HPI. Patient should continue to follow-up with [facility] in the outpatient setting as well as patient takes a number of psychiatric medications. Currently no reports of chest pain, shortness of breath, or palpitations. Patient is afebrile. No reports of nausea or vomiting and patient is tolerating diet. Patient will be discharged home today. Guarded prognosis and high risk for readmissions given comorbidities and noncompliance outpatient. Physical exam: Gen: This is a 44-year-old male who is awake, alert and oriented x 3, well-developed, appears older than stated age, obese HEENT: Head is atraumatic, normocephalic. Pupils equal, round. Sclerae is anicteric. NECK: Supple. No JVD. No lymphadenopathy. No thyromegaly. LUNGS: Clear to auscultation. No wheezes or rhonchi. No intercostal retractions. HEART: Regular rate and rhythm. No murmur. ABDOMEN: Soft. Bowel sounds are present. No masses. No tenderness. EXTREMITIES: No pedal edema. No calf tenderness. NEUROLOGICAL: Patient is awake, alert and oriented x3. Cranial nerves 2 through 12 are grossly intact. Please refer to medication reconciliation sheet for a list of medications. The impression and plan of care has been dictated by Angeli Steele, Nurse Practitioner as directed. Dr. Tray MD I have performed a history and examination and MDM of this patient, discussed the same with the dictator, and agree with the dictator's assessment and plan as written ,documented as a scribe. Based on total visit time, I have performed more than 50% of the visit. Patient Condition at Discharge: Stable Plan - Discharge Summary New Discharge Prescriptions: Continue OLANZapine 15 mg PO HS Gabapentin [Neurontin] 400 mg PO TID busPIRone HCL 15 mg PO TID OLANZapine 5 mg PO DAILY ALPRAZolam [Xanax] 2 mg PO TID Mirtazapine [Remeron] 30 mg PO HS Discharge Medication List ALPRAZolam [Xanax] 2 mg PO TID 10/30/24 [History] Gabapentin [Neurontin] 400 mg PO TID 10/30/24 [History] Mirtazapine [Remeron] 30 mg PO HS 10/30/24 [History] OLANZapine 5 mg PO DAILY 10/30/24 [History] OLANZapine 15 mg PO HS 10/30/24 [History] busPIRone HCL 15 mg PO TID 10/30/24 [History] Follow up Appointment(s)/Referral(s): Jaime Aguilar MD [Primary Care Provider] - 1-2 days Torrie Burroughs MD [STAFF PHYSICIAN] - 1 Week Guillermo Foster MD [STAFF PHYSICIAN] - 1 Week Activity/Diet/Wound Care/Special Instructions: Discussed with your primary care provider about discontinuing Ozempic activity limited until follow-up Follow-up GI outpatient Follow-up with cardiology outpatient Follow-up with primary care provider on discharge Discharge Disposition: HOME SELF-CARE
== END 2024-11-02 17:00 | disposition home or self-care (01) ==
LOC: EC 10:37 → SUPCPDRO 10:37 → 1SOBS 13:15
PROVIDERS: ADMIT Hospitalist; ATTEND Hospitalist
DX: R07.9 Chest pain, unspecified (principal); I10 Essential (primary) hypertension; R79.89 Other specified abnormal findings of blood chemistry; R74.8 Abnormal levels of other serum enzymes; K76.0 Fatty (change of) liver, not elsewhere classified; K21.9 Gastro-esophageal reflux disease without esophagitis; R73.03 Prediabetes; G43.909 Migraine, unspecified, not intractable, without status migrainosus; K85.90 Acute pancreatitis without necrosis or infection, unspecified; E66.9 Obesity, unspecified; E78.5 Hyperlipidemia, unspecified; F17.200 Nicotine dependence, unspecified, uncomplicated; F25.9 Schizoaffective disorder, unspecified; F31.30 Bipolar disorder, current episode depressed, mild or moderate severity, unspecified; F41.0 Panic disorder [episodic paroxysmal anxiety]; F43.10 Post-traumatic stress disorder, unspecified; T38.3X6A Underdosing of insulin and oral hypoglycemic [antidiabetic] drugs, initial encounter; Z91.128 Patient's intentional underdosing of medication regimen for other reason; Z68.32 Body mass index [BMI] 32.0-32.9, adult; Z79.899 Other long term (current) drug therapy; Z90.49 Acquired absence of other specified parts of digestive tract; Z88.8 Allergy status to other drugs, medicaments and biological substances
CPT/HCPCS: 96375 ×2; 96376; 96374; 99285; 36415; 93005; 93306; 93351; 80061; 80053 ×2; 82140; 82150; 83690 ×2; 83735; 84484; 85025 ×2; 85610; 85730; 81003; 80306; 83036; 71046; 74177; G0378 ×2; J2270; J1885; Q9967; J2470 ×2